=== PATIENT | male | born 1945 | race Caucasian/White ===

== ENCOUNTER → 2023-09-11 13:28 | Outpatient (REF) | payer OTHER, SELFPAY ==
[2023-09-11 16:33] LABS: Urine Albumin Negative (Neg - Trace); Urine Bilirubin Negative (Negative); Urine Character Clear (Clear); Urine Color Yellow; Urine Glucose Negative (Negative); Urine Ketone Negative (Negative); Urine Leukocyte Negative (Negative); Urine Nitrite Negative (Negative); Urine Occult Blood Negative (Negative); Urine Specific Gravity 1.025 (<1.030); Urine Urobilinogen Negative (Neg - 1+)
== END ==
LOC: HWLAB 13:28
PROVIDERS: ATTENDING PHYSICIAN Internal Medicine; REFERRING PHYSICIAN Urology
DX: R73.01 Impaired fasting glucose (principal); I48.21 Permanent atrial fibrillation; N28.89 Other specified disorders of kidney and ureter; J44.9 Chronic obstructive pulmonary disease, unspecified; E78.2 Mixed hyperlipidemia; E03.9 Hypothyroidism, unspecified
CPT/HCPCS: 81003

== ENCOUNTER → 2023-09-12 09:40 | Outpatient (REF) | payer OTHER, SELFPAY ==
[2023-09-12 11:42] LABS: % Basophils 0.8 % (0-2); % Eosinophils 2.4 % (0-6); % Immature Granulocytes 0.4 % (0-0.5); % Lymphocytes 10.9 % (20.5-51.1); % Neutrophils 75.5 % (42.2-75.2); Absolute Basophils 0.1 10^3/uL (0-0.2); Absolute Eosinophils 0.2 10^3/uL (0-0.7); Absolute Lymphocytes 0.8 10^3/uL (1.2-3.4); Absolute Monocytes 0.8 10^3/uL (0.1-0.6); Absolute Neutrophils 5.7 10^3/uL (1.4-6.5); Hematocrit 42.1 % (39.0-52.0); Hemoglobin 13.9 g/dL (13.0-18.0); Mean Corpuscular Hgb 30.8 pg (27.0-31.0); Mean Corpuscular Volume 93.1 fL (80.0-94.0); Nucleated Red Blood Cells % 0 % (-); Platelet Count 270 10^3/uL (130-400); Red Blood Cell Count 4.52 10^6/uL (4.70-6.10); White Blood Cell Count 7.5 10^3/uL (4.8-10.8)
[2023-09-12 11:46] LABS: ALT (SGPT) 17 U/L (0-50); AST (SGOT) 25 U/L (17-59); Albumin 4.2 g/dl (3.5-5.0); Alkaline Phosphatase 50 U/L (38-126); Blood Urea Nitrogen 24 mg/dl (9-20); Calcium 9.4 mg/dl (8.4-10.2); Carbon Dioxide 26 mmol/L (22-30); Chloride 103 mmol/L (98-107); Glucose 121 mg/dl (70-99); HDL Cholesterol 38 mg/dl; LDL Cholesterol, Calculated 70 mg/dl; Sodium 139 mmol/L (135-145); Total Bilirubin 0.9 mg/dl (0.2-1.3); Total Cholesterol 125 mg/dl (50-199); Total Protein 6.7 g/dl (6.3-8.2); Triglyceride 85 mg/dl (10-149); Very Low Density Lipoprotein 17 mg/dl (0-30); eGFR > 60.00
[2023-09-12 11:54] LABS: Potassium 3.9 mmol/L (3.5-5.1)
[2023-09-13 13:00] LABS: Free T4 1.26 ng/dl (0.78-2.19)
== END ==
LOC: HWLAB 09:40
PROVIDERS: ATTENDING PHYSICIAN Internal Medicine
DX: I48.21 Permanent atrial fibrillation (principal); E78.2 Mixed hyperlipidemia; J44.9 Chronic obstructive pulmonary disease, unspecified; R73.01 Impaired fasting glucose; E03.9 Hypothyroidism, unspecified
CPT/HCPCS: 36415; 80053; 80061; 83036; 84439; 84443; 85025

== ENCOUNTER → 2023-09-13 10:22 | Outpatient (REF) | payer OTHER, SELFPAY | LOC: HWRAD 10:22 | PROVIDERS: ATTENDING PHYSICIAN Urology; FAMILY PHYSICIAN Internal Medicine | DX: C64.9 Malignant neoplasm of unspecified kidney, except renal pelvis (principal) | CPT/HCPCS: 74170; Q9967 ==

== ENCOUNTER → 2023-09-28 | Outpatient (REF) | payer OTHER, SELFPAY | LOC: DHSLP | PROVIDERS: ATTENDING PHYSICIAN Internal Medicine | DX: G47.33 Obstructive sleep apnea (adult) (pediatric) (principal) | CPT/HCPCS: 95800 ==

== ENCOUNTER → 2024-09-11 11:47 | Outpatient (REF) | payer OTHER, SELFPAY ==
[2024-09-11 16:21] LABS: ALT (SGPT) 15 U/L (0-50); AST (SGOT) 23 U/L (17-59); Albumin 4.8 g/dl (3.5-5.0); Alkaline Phosphatase 54 U/L (38-126); Blood Urea Nitrogen 18 mg/dl (9-20); Calcium 9.9 mg/dl (8.4-10.2); Carbon Dioxide 27 mmol/L (22-30); Chloride 106 mmol/L (98-107); Glucose 127 mg/dl (70-99); HDL Cholesterol 36 mg/dl; LDL Cholesterol, Calculated 78 mg/dl; Potassium 4.1 mmol/L (3.5-5.1); Sodium 145 mmol/L (135-145); Total Bilirubin 1.4 mg/dl (0.2-1.3); Total Cholesterol 135 mg/dl (50-199); Total Protein 7.2 g/dl (6.3-8.2); Triglyceride 105 mg/dl (10-149); Very Low Density Lipoprotein 21 mg/dl (0-30); eGFR > 60.00
[2024-09-11 16:29] LABS: Microalbumin, Random Urine 5.9 mg/dl (0.6-1.7)
[2024-09-11 16:40] LABS: Hematocrit 47.1 % (39.0-52.0); Hemoglobin 15.3 g/dL (13.0-18.0); Mean Corp Hgb Conc. 32.5 g/dL (33.0-37.0); Mean Corpuscular Volume 95.3 fL (80.0-94.0); Mean Platelet Volume 10.9 fL (7.4-10.4); Platelet Count 286 10^3/uL (130-400); Red Blood Cell Count 4.94 10^6/uL (4.70-6.10); Red Cell Dist. Width 15.1 % (11.5-14.5); White Blood Cell Count 8.7 10^3/uL (4.8-10.8)
[2024-09-11 16:42] LABS: Microalbumin/creatinine Ratio 96.6 mg/g
[2024-09-11 16:44] LABS: TSH 2.93 uIU/ml (0.47-4.68)
[2024-09-11 17:27] LABS: % Basophils 0.7 % (0-2); % Eosinophils 2.7 % (0-6); % Immature Granulocytes 13.7 % (0-0.5); % Lymphocytes 9.7 % (20.5-51.1); % Monocytes 10.8 % (1.7-9.3); % Neutrophils 62.4 % (42.2-75.2); Absolute Basophils 0.1 10^3/uL (0-0.2); Absolute Eosinophils 0.2 10^3/uL (0-0.7); Absolute Immature Granulocytes 1.2 10^3/uL (0-0.05); Absolute Lymphocytes 0.9 10^3/uL (1.2-3.4); Absolute Monocytes 0.9 10^3/uL (0.1-0.6); Absolute Neutrophils 5.4 10^3/uL (1.4-6.5); Nucleated Red Blood Cells % 0 % (-)
[2024-09-12 08:15] LABS: Glycohemoglobin (HgbA1c) 5.9 % (4.0-5.6)
== END ==
LOC: HWLAB 11:47
PROVIDERS: FAMILY PHYSICIAN Internal Medicine
DX: E11.9 Type 2 diabetes mellitus without complications (principal); R73.01 Impaired fasting glucose; E03.9 Hypothyroidism, unspecified; I48.21 Permanent atrial fibrillation; E78.2 Mixed hyperlipidemia; J44.9 Chronic obstructive pulmonary disease, unspecified; I48.91 Unspecified atrial fibrillation; I35.1 Nonrheumatic aortic (valve) insufficiency; E78.00 Pure hypercholesterolemia, unspecified; I25.10 Atherosclerotic heart disease of native coronary artery without angina pectoris; I48.20 Chronic atrial fibrillation, unspecified
CPT/HCPCS: 36415; 80053; 80061; 82043; 82570; 83036; 84443; 85025

== ENCOUNTER → 2024-11-11 08:53 | Outpatient (REF) | payer OTHER, SELFPAY | LOC: HWRAD 08:53 | PROVIDERS: ATTENDING PHYSICIAN Internal Medicine | DX: G45.9 Transient cerebral ischemic attack, unspecified (principal) | CPT/HCPCS: 93880 ==

== ENCOUNTER 2024-11-14 11:04 | Emergency (ER) | payer OTHER, SELFPAY ==
[2024-11-14 11:04] VITALS: BMI 32.2
[2024-11-14 11:06] VITALS: BP 114/66
[2024-11-14 11:20] VITALS: BP 142/55
[2024-11-14 11:57] LABS: Hematocrit 47.9 % (39.0-52.0); Hemoglobin 15.8 g/dL (13.0-18.0); Mean Corpuscular Volume 94.1 fL (80.0-94.0); Mean Platelet Volume 10.8 fL (7.4-10.4); Platelet Count 293 10^3/uL (130-400); Red Blood Cell Count 5.09 10^6/uL (4.70-6.10); Red Cell Dist. Width 15.5 % (11.5-14.5); White Blood Cell Count 9.8 10^3/uL (4.8-10.8)
[2024-11-14 12:03] VITALS: BP 126/58
[2024-11-14 12:13] LABS: ALT (SGPT) 12 U/L (0-50); AST (SGOT) 22 U/L (17-59); Albumin 4.5 g/dl (3.5-5.0); Alkaline Phosphatase 44 U/L (38-126); Blood Urea Nitrogen 20 mg/dl (9-20); Calcium 9.8 mg/dl (8.4-10.2); Carbon Dioxide 32 mmol/L (22-30); Chloride 100 mmol/L (98-107); Estimated Creatinine Clearance 67 ml/min; Glucose 119 mg/dl (70-99); Potassium 4.1 mmol/L (3.5-5.1); Sodium 140 mmol/L (135-145); Total Bilirubin 1.2 mg/dl (0.2-1.3); Total Protein 7.1 g/dl (6.3-8.2); eGFR > 60.00
[2024-11-14 12:30] VITALS: BP 130/58
[2024-11-14 12:55] LABS: % Basophils 0.5 % (0-2); % Eosinophils 2.1 % (0-6); % Immature Granulocytes 0.5 % (0-0.5); % Lymphocytes 5.8 % (20.5-51.1); % Monocytes 10.7 % (1.7-9.3); % Neutrophils 80.4 % (42.2-75.2); Absolute Basophils 0.1 10^3/uL (0-0.2); Absolute Eosinophils 0.2 10^3/uL (0-0.7); Absolute Immature Granulocytes 0.1 10^3/uL (0-0.05); Absolute Lymphocytes 0.6 10^3/uL (1.2-3.4); Absolute Monocytes 1.1 10^3/uL (0.1-0.6); Absolute Neutrophils 7.8 10^3/uL (1.4-6.5); Nucleated Red Blood Cells % 0 % (-)
[2024-11-14 13:00] VITALS: BP 134/60
[2024-11-14 13:30] VITALS: BP 138/63
--- NOTE | 2024-11-14 13:59 | ED.GENMED ---
History of Present Illness
General
Chief Complaint: Dizziness
Time Seen by Provider: 11/14/24 11:12
History of Present Illness
History of Present Illness:
79-year-old male with history of permanent A-fib, CHF, CAD, hypertension, and hyperlipidemia presents to the emergency department for evaluation of dizziness as well as head pressure today. He notes that 3 weeks ago he had an episode of right
facial droop and slurred speech that lasted for several minutes before resolving. He followed up on this abnormality with his primary care physician who sent him for an outpatient carotid duplex study, this revealed less than 50% stenosis in both
carotids. He has an MRI scheduled for December to evaluate this further. He has been compliant with his Eliquis. Denies any chest pain or shortness of breath at this time. Also notes a persistent cough that does not seem to resolve as been
worsening over the past several weeks
Past History
Past History
ED Past Medical History: CAD and HTN
ED Past Surgical History: Cardiac and Other (Thymoma)
Social History
Tobacco: Non-smoker
Alcohol: None
Drug: None
Personal: Single
Living: with family
Employment: Employed
Family History
Family History: Negative Early CAD
Review of Systems
Review of Systems
Allergies reviewed?: Yes
All Other Systems: ROS reviewed and negative except as documented in HPI and ROS
Phy Exam
Physical Exam
Physical Exam:
GEN: Well appearing, NAD, WDWN
HEENT: Oral mucosa moist, no scleral icterus, no nasal congestion
Cardiac: Bradycardic and irregular
Lung: No respiratory distress, no tachypnea
MSK: No gross deformity or injuries
Skin: Good color, no pallor or jaundice, no rashes
Neuro: AO x3; CN II-XII grossly intact. BUE strength 5/5 in all lynn, sensation intact and symmetric. BLE strength 5/5 in all lynn, sensation intact and symmetric
Psych: Calm, cooperative
Course
Orders/Labs/Results
Orders:
Orders
11/14/24 11:23
Electrocardiogram (*1) Urgent
Reason for Study: TIA/Stroke
CT Head W/o Iv Contrast Urgent
Comment:
Reason For Exam: R facial droop/dysarthria now resolved
EKG- Treatment ONCE
11/14/24 11:31
Complete Blood Count/With Diff Urgent
Comprehensive Metabolic Panel Urgent
11/14/24 13:49
CR Chest - 2 Views Urgent
Comment:
Reason For Exam: cough
Abnormal Lab Results
11/14/24
11:31
MCV 94.1 H fL
(80.0-94.0)
RDW 15.5 H %
(11.5-14.5)
MPV 10.8 H fL
(7.4-10.4)
Abs Immat Gran (auto) 0.1 H 10^3/uL
(0-0.05)
Absolute Neuts (auto) 7.8 H 10^3/uL
(1.4-6.5)
Absolute Lymphs (auto) 0.6 L 10^3/uL
(1.2-3.4)
Absolute Monos (auto) 1.1 H 10^3/uL
(0.1-0.6)
Neutrophils % 80.4 H %
(42.2-75.2)
Lymphocytes % 5.8 L %
(20.5-51.1)
Monocytes % 10.7 H %
(1.7-9.3)
Carbon Dioxide 32 H mmol/L
(22-30)
Glucose 119 H mg/dl
(70-99)
11/14/24 11:31
11/14/24 11:31
Vital Signs
Initial and Last Documented VS:
Initial Vital Signs
Pulse Resp BP Pulse Ox
65 15 114/66 97
11/14/24 11:06 11/14/24 11:06 11/14/24 11:06 11/14/24 11:06
Last Documented Vital Signs
Pulse Resp BP Pulse Ox
60 16 138/63 95
11/14/24 13:30 11/14/24 14:00 11/14/24 13:30 11/14/24 14:00
MDM/Problems Addressed
MDM/Problems Addressed:
Because of the patient's dizziness and head pressure at this time is unclear. His CT shows no sign of subacute stroke, his recent facial symptoms are most likely a TIA however he is well outside the range to start antiplatelets nevertheless he is
on anticoagulants and this would not be recommended. In regards to his persistent coughing he was noted to have a right pleural effusion with question of associated pneumonia versus atelectasis, will cover with 5-day course of antibiotics although
his coughing sounds more postnasal drip in nature.
Comment
Comment:
EKG independently interpreted by me shows an atrial fibrillation at a rate of [address] changes concerning for ischemia
*Pulse Oximetry
SaO2: 95
Oxygen Mode of Delivery: Room air
Patient hypoxic: no
*Critical Care Note
Total Time (30-74mins, 75-104mins- exclusive of procedures): Not Applicable
ED Attending Note
-
Portions of this chart may have been created with voice recognition software.� Occasional wrong word or��sound alike� substitutions may have occurred due to the inherent limitations of voice recognition software.
Discharge Plan
Departure
Patient Disposition: Home (Routine Discharge)
Date of Disposition: 11/14/24
Time of Disposition: 15:08
Patient with high blood pressure during this ER visit?: No
Discharge Problem:
Pleural effusion on right, Brain TIA, intractable cough
Instructions: Pleural effusion - Discharge instructions
Prescriptions:
New
amoxicillin-pot clavulanate 875-125 mg tablet
1 tab PO BID 5 Days Qty: 10 0RF
ipratropium bromide 42 mcg (0.06 %) spray,non-aerosol
2 spray intranasal TID PRN (Reason: allergy symptoms) Qty: 15 0RF
No Action
omeprazole [Prilosec] 40 MG capsule,delayed release(DR/EC)
40 mg PO PRN PRN (Reason: as needed)
metoprolol tartrate 50 MG tablet
50 mg PO BID
levothyroxine 200 MCG tablet
200 mcg PO DAILY
finasteride 5 MG tablet
5 mg PO DAILY
fenofibrate nanocrystallized 48 MG tablet
48 mg PO DAILY
prednisone 50 MG tablet
50 mg PO DAILY Qty: 5 0RF
albuterol sulfate 1 PUFF HFA aerosol inhaler
1 puff inhalation R Q4HPRN PRN (Reason: cough,wheezing,short of breath) Qty: 1 0RF
Referrals:
Rasta Suresh MD [Active, Pulmonary Medicine] - Call in 1-3 days for appt
Adriel Boyce DO [Family Provider, Internal Medicine]
Activity Restrictions/Additional Instructions:
You have a small amount of fluid buildup in your right lung which may be causing your cough. It is also possible there may be a small pneumonia adjacent to this and as a result we will treat you with a short course of antibiotics
Follow-up with your primary doctor as well as the listed entrepreneurial finance professor to discuss next steps for your right sided fluid, at this time it does not appear large enough to be drained
Interventions
Interventions:
*Risk Screen - Suicide Last Done: 11/14/24 11:06
*General Assessment Last Done: 11/14/24 11:06
*Neglect/Abuse Screening Last Done: 11/14/24 11:06
*ED- Fall Risk Assessment Last Done: 11/14/24 11:40
*ED COVID-19 Vaccine History Last Done: 11/14/24 11:06
*Nursing Disposition Last Done: 11/14/24 15:18
ED- Neurological Assessment Last Done: 11/14/24 11:40
ED- Cardiac Assessment Last Done: 11/14/24 11:40
ED Swallowing Screen Last Done: 11/14/24 11:40
Discharge Date and Time
Discharge Date/Time: 11/14/24 15:18
Print Language: GRENADIAN
== END 2024-11-14 15:18 | disposition home or self-care (01) ==
LOC: EMR 11:04
PROVIDERS: Physician Assistant; EMERGENCY PHYSICIAN Emergency Medicine; FAMILY PHYSICIAN Internal Medicine
DX: G45.9 Transient cerebral ischemic attack, unspecified (principal); J90 Pleural effusion, not elsewhere classified; R05.9 Cough, unspecified; E78.5 Hyperlipidemia, unspecified; I11.0 Hypertensive heart disease with heart failure; I50.9 Heart failure, unspecified; I48.21 Permanent atrial fibrillation; I25.10 Atherosclerotic heart disease of native coronary artery without angina pectoris; Z79.01 Long term (current) use of anticoagulants; Z95.0 Presence of cardiac pacemaker
CPT/HCPCS: 99285; 70450; 71046; 80053; 85025; 93005

== ENCOUNTER → 2024-12-02 11:58 | Outpatient (REF) | payer OTHER, SELFPAY ==
[2024-12-02 15:41] LABS: Hematocrit 46.9 % (39.0-52.0); Hemoglobin 15.3 g/dL (13.0-18.0); Mean Corp Hgb Conc. 32.6 g/dL (33.0-37.0); Mean Corpuscular Volume 94.0 fL (80.0-94.0); Platelet Count 244 10^3/uL (130-400); Red Cell Dist. Width 15.6 % (11.5-14.5)
[2024-12-02 15:53] LABS: Blood Urea Nitrogen 23 mg/dl (9-20); Calcium 9.5 mg/dl (8.4-10.2); Carbon Dioxide 30 mmol/L (22-30); Chloride 101 mmol/L (98-107); Glucose 117 mg/dl (70-99); Potassium 4.0 mmol/L (3.5-5.1); Sodium 139 mmol/L (135-145); eGFR > 60.00
[2024-12-02 16:28] LABS: Nucleated Red Blood Cells % 0 % (-)
== END ==
LOC: HWLAB 11:58
PROVIDERS: ATTENDING PHYSICIAN Nurse Practitioner Adult Health
DX: R06.09 Other forms of dyspnea (principal); I50.32 Chronic diastolic (congestive) heart failure; I35.1 Nonrheumatic aortic (valve) insufficiency; J44.9 Chronic obstructive pulmonary disease, unspecified; R09.82 Postnasal drip
CPT/HCPCS: 36415; 71046; 80048; 83880; 85025

== ENCOUNTER → 2024-12-25 13:39 | Outpatient (REF) | payer OTHER, SELFPAY ==
[2024-12-25 16:28] LABS: Blood Urea Nitrogen 19 mg/dl (9-20); Calcium 9.7 mg/dl (8.4-10.2); Carbon Dioxide 32 mmol/L (22-30); Chloride 100 mmol/L (98-107); Glucose 115 mg/dl (70-99); Potassium 4.2 mmol/L (3.5-5.1); Sodium 140 mmol/L (135-145); eGFR > 60.00
== END ==
LOC: HWLAB 13:39
PROVIDERS: ATTENDING PHYSICIAN Nurse Practitioner Family; FAMILY PHYSICIAN Internal Medicine
DX: I50.32 Chronic diastolic (congestive) heart failure (principal); R06.02 Shortness of breath; J44.9 Chronic obstructive pulmonary disease, unspecified; I35.1 Nonrheumatic aortic (valve) insufficiency; I48.21 Permanent atrial fibrillation
CPT/HCPCS: 36415; 80048; 83880

== ENCOUNTER 2024-12-31 20:50 | Inpatient (IN) | payer OTHER, SELFPAY ==
[2024-12-31 14:57] VITALS: BP 159/70
[2024-12-31 15:33] LABS: C-Reactive Protein < 5.00 mg/L (0.0-10.00)
[2024-12-31 15:38] LABS: ALT (SGPT) 14 U/L (0-50); AST (SGOT) 24 U/L (17-59); Albumin 4.6 g/dl (3.5-5.0); Alkaline Phosphatase 56 U/L (38-126); Blood Urea Nitrogen 21 mg/dl (9-20); Calcium 9.7 mg/dl (8.4-10.2); Carbon Dioxide 32 mmol/L (22-30); Chloride 104 mmol/L (98-107); Glucose 109 mg/dl (70-99); Potassium 4.4 mmol/L (3.5-5.1); Sodium 142 mmol/L (135-145); Total Protein 6.9 g/dl (6.3-8.2); eGFR > 60.00
[2024-12-31 15:53] LABS: Hematocrit 49.2 % (39.0-52.0); Hemoglobin 15.9 g/dL (13.0-18.0); Mean Corp Hgb Conc. 32.3 g/dL (33.0-37.0); Mean Corpuscular Volume 93.9 fL (80.0-94.0); Nucleated Red Blood Cells % 0 % (-); Platelet Count 277 10^3/uL (130-400); Red Cell Dist. Width 15.9 % (11.5-14.5)
[2024-12-31 19:00] VITALS: BP 149/56
--- NOTE | 2024-12-31 19:43 | ED.GENMED ---
History of Present Illness
General
Chief Complaint: Eye Problems
Time Seen by Provider: 12/31/24 17:32
History of Present Illness
History of Present Illness:
79-year-old male with history of A-fib on Eliquis, CHF, CAD, hypertension and hyperlipidemia presents to the emergency department for evaluation of intermittent visual disturbances over the past several weeks. He went to his eye doctor today where
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 He did have a TIA approximately 6 weeks ago with facial droop that was evaluated with head CT and carotid
Doppler, Doppler at that time showed no significant carotid stenosis. He is compliant with his Eliquis. Denies any current visual symptoms
Past History
Past History
ED Past Medical History: CAD and HTN
ED Past Surgical History: Cardiac and Other (Thymoma)
Social History
Tobacco: Non-smoker
Alcohol: None
Drug: None
Personal: Single
Living: with family
Employment: Employed
Family History
Family History: Negative Early CAD
Review of Systems
Review of Systems
Allergies reviewed?: Yes
All Other Systems: ROS reviewed and negative except as documented in HPI and ROS
Phy Exam
Physical Exam
Physical Exam:
GEN: Well appearing, NAD, WDWN
HEENT: Oral mucosa moist, no scleral icterus, no nasal congestion
Cardiac: Regular rate
Lung: No respiratory distress, no tachypnea
MSK: No gross deformity or injuries
Skin: Good color, no pallor or jaundice, no rashes
Neuro: AO x3; CN II-XII grossly intact. BUE strength 5/5 in all lynn, sensation intact and symmetric. BLE strength 5/5 in all lynn, sensation intact and symmetric. Visual lynn intact by confrontation x 4 and symmetric
Psych: Calm, cooperative
Course
Orders/Labs/Results
Orders:
Orders
12/31/24 14:55
CT Head W/o Iv Contrast Urgent
Comment:
Reason For Exam: vision change
12/31/24 14:56
US Cerebrovascular Urgent
Comment:
Reason For Exam: vision changes
12/31/24 14:59
EKG [Electrocardiogram (*1)] Urgent
Reason for Study: Bradycardia / Tachycardia
EKG- Treatment ONCE
12/31/24 15:09
CRP [C-Reactive Protein] Urgent
Complete Blood Count/With Diff Urgent
Comprehensive Metabolic Panel Urgent
ESR [Erythrocyte Sed Rate] Urgent
12/31/24 17:44
CT Head & Neck Angio W/wo IV Urgent
Comment:
Reason For Exam: abnormal carotid doppler, L vision loss
Abnormal Lab Results
12/31/24
15:09
MCHC 32.3 L g/dL
(33.0-37.0)
RDW 15.9 H %
(11.5-14.5)
MPV 10.8 H fL
(7.4-10.4)
Abs Immat Gran (auto) 0.1 H 10^3/uL
(0-0.05)
Absolute Neuts (auto) 6.7 H 10^3/uL
(1.4-6.5)
Absolute Lymphs (auto) 0.7 L 10^3/uL
(1.2-3.4)
Absolute Monos (auto) 0.9 H 10^3/uL
(0.1-0.6)
Immature Gran % 0.8 H %
(0-0.5)
Neutrophils % 78.0 H %
(42.2-75.2)
Lymphocytes % 8.4 L %
(20.5-51.1)
Monocytes % 10.2 H %
(1.7-9.3)
Carbon Dioxide 32 H mmol/L
(22-30)
BUN 21 H mg/dl
(9-20)
Glucose 109 H mg/dl
(70-99)
Total Bilirubin 1.4 H mg/dl
(0.2-1.3)
12/31/24 15:09
12/31/24 15:09
Vital Signs
Initial and Last Documented VS:
Initial Vital Signs
Pulse Resp BP Pulse Ox
52 17 159/70 96
12/31/24 14:57 12/31/24 14:57 12/31/24 14:57 12/31/24 14:57
Last Documented Vital Signs
Pulse Resp BP Pulse Ox
52 17 159/70 96
12/31/24 14:57 12/31/24 14:57 12/31/24 14:57 12/31/24 19:45
MDM/Problems Addressed
MDM/Problems Addressed:
Although initial carotid Doppler did show progression of stenosis right worse than left, a follow-up CTA was obtained showing significant carotid stenosis bilaterally. Discussed case with vascular surgery, as he is symptomatic with vision loss
intermittently will admit on heparin with plan for inpatient CEA if deemed appropriate by vascular. Will be admitted to the hospitalist service on heparin
*Pulse Oximetry
SaO2: 96
Oxygen Mode of Delivery: Room air
Patient hypoxic: no
*Critical Care Note
Total Time (30-74mins, 75-104mins- exclusive of procedures): Not Applicable
ED Attending Note
-
Portions of this chart may have been created with voice recognition software.� Occasional wrong word or��sound alike� substitutions may have occurred due to the inherent limitations of voice recognition software.
Discharge Plan
Departure
Patient Disposition: Admit
Date of Disposition: 12/31/24
Time of Disposition: 19:45
Admit to: Telemetry
Presentation/result/management discussed w/ accepting MD/DO: Hospitalist
Discharge Problem:
Carotid artery stenosis, symptomatic
Prescriptions:
No Action
omeprazole [Prilosec] 40 MG capsule,delayed release(DR/EC)
40 mg PO PRN PRN (Reason: as needed)
metoprolol tartrate 50 MG tablet
50 mg PO BID
levothyroxine 200 MCG tablet
200 mcg PO DAILY
finasteride 5 MG tablet
5 mg PO DAILY
fenofibrate nanocrystallized 48 MG tablet
48 mg PO DAILY
prednisone 50 MG tablet
50 mg PO DAILY Qty: 5 0RF
albuterol sulfate 1 PUFF HFA aerosol inhaler
1 puff inhalation R Q4HPRN PRN (Reason: cough,wheezing,short of breath) Qty: 1 0RF
amoxicillin-pot clavulanate 875-125 mg tablet
1 tab PO BID 5 Days Qty: 10 0RF
ipratropium bromide 42 mcg (0.06 %) spray,non-aerosol
2 spray intranasal TID PRN (Reason: allergy symptoms) Qty: 15 0RF
Referrals:
Adriel Boyce DO [Family Provider, Internal Medicine]
Interventions
Interventions:
*Risk Screen - Suicide Last Done: 12/31/24 14:58
*General Assessment Last Done: 12/31/24 14:58
*Neglect/Abuse Screening Last Done: 12/31/24 14:58
*ED COVID-19 Vaccine History Last Done: 12/31/24 14:58
Discharge Date and Time
Print Language: CYMRAES
[2024-12-31 19:51] VITALS: BMI 30.1
[2024-12-31 20:01] VITALS: BP 147/83
--- NOTE | 2024-12-31 20:02 | HPS.HSE ---
Family Physician
-
Family Physician: Adriel Boyce
Chief Complaint
-
Vision disturbance
History of Present Illness
This is an 79-year-old male with past medical history significant for coronary for fibrillation on anticoagulation, CAD status post CABG, COPD, hypertension, hyperlipidemia presenting from my clinic for evaluation of carotid stenosis.
Patient reports intermittent high disturbances over the past several weeks. 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
Patient had a TIA approximately 6 weeks ago with facial droop and was evaluated with head CT and carotid Dopplers. Doppler at that time showed no significant carotid stenosis. He is compliant with his Eliquis. He is currently without any active
vision complaints.
In the emergency department today, blood pressure was 150/56 with a pulse of 57 and was satting 95% on room air. ECG shows atrial fibrillation at a rate of 56. CBC was unremarkable, electrolytes BUN and creatinine were normal.
Vascular U/S
RIGHT: Plaque is identified in the carotid bulb and internal carotid artery. Carotid velocity profile is consistent with 50-69% internal carotid artery stenosis. Vertebral artery flow is antegrade.
LEFT: Calcified plaque is identified in the carotid bulb. Acoustic shadowing from the plaque limits the velocity evaluation in that area. Carotid velocity measurements are consistent with less than 50% internal carotid artery stenosis. Vertebral
artery flow is antegrade.
CTA Head: No significant arterial stenosis. No aneurysm.
CTA Neck: Atherosclerotic calcifications of the bilateral carotid bifurcations with approximately 75% stenosis on the left and 65% stenosis on the right by NASA criteria.
Medical History
Past Medical History
Past Medical History: Reports Arrhythmia (atrial fibrillation), CAD, COPD and HTN
Additional Past Medical History:
Hypothyroid
Irritable disease
CAD
Hypertension
Chronic atrial fibrillation
CHF
Mitral regurgitation
COPD
Past Surgical History: Reports Other
Additional Past Surgical History:
Coverage
Thyroid resection
Prostate procedure
L3-4 ILESI
Bilateral cataract extraction
Social History
Alcohol: None
Drug: None
Employment: Not Employed
Family History
Family History: Not pertinent
Allergies / Home Medications
Allergies reflects when Allergies were last updated in [facility].
Home Medications with original date entered in [facility]
Allergy/Medication List:
Allergies
Allergy/AdvReac Type Severity Reaction Status Date / Time
oxycodone (From Percocet) Allergy Nausea / Verified 12/31/24 19:52
Vomiting
Home Medications
fenofibrate nanocrystallized 48 mg tablet 48 mg PO DAILY 09/20/11
finasteride 5 mg tablet 5 mg PO DAILY 09/20/11
levothyroxine 200 mcg tablet 200 mcg PO DAILY 09/20/11
metoprolol tartrate 50 mg tablet 50 mg PO BID 09/20/11
omeprazole 40 mg capsule,delayed release (Prilosec) 40 mg PO PRN PRN as needed 09/20/11
albuterol sulfate 90 mcg/actuation aerosol inhaler 1 puff inhalation R Q4HPRN PRN cough,wheezing,short of breath ##1 06/25/18
prednisone 50 mg tablet 50 mg PO DAILY #5 tabs 06/25/18
amoxicillin 875 mg-potassium clavulanate 125 mg tablet 1 tab PO BID 5 days #10 tabs 11/14/24
ipratropium bromide 42 mcg (0.06 %) nasal spray 2 spray intranasal TID PRN allergy symptoms #15 mL 11/14/24
Review of Systems
-
Constitutional: Reports No Symptoms
EENT: Reports No Symptoms
Respiratory: Reports No Symptoms
Cardiac: Reports No Symptoms
Abdomen/GI: Reports No Symptoms
: Reports No Symptoms
Musculoskeletal: Reports No Symptoms
Skin: Reports No Symptoms
Neurological: Reports No Symptoms
Endocrine: Reports No Symptoms
Hematologic/Lymphatic: Reports No Symptoms
Psych: Reports No Symptoms
Physical Exam
Vital Signs
Vital Signs
Pulse Resp BP Pulse Ox
61 18 147/83 96
12/31/24 20:01 12/31/24 20:01 12/31/24 20:01 12/31/24 20:01
Physical Exam
General: Well Developed, Well Nourished and No Apparent Distress
HEENT: NormoCephalic, Moist mucous membranes, Atraumatic, PERRLA (Asymmetric dilation of the pupils, left greater than right, reactive to light bilaterally) and No Ptosis
Respiratory: Clear
Cardiac: S1/S2, Irregular Rhythm and Bradycardia; No Murmur or Rub
GI: Soft, Non Tender, Non Distended and Normal Bowel Sounds; No Organomegaly
Rectal: Deferred by Provider
Musculoskeletal: No Clubbing, No Cyanosis, Edema, Left Lower Extremity, Edema, Right Lower Extremity and No Edema
Skin: No Rash
Neuro: Nonfocal/grossly intact
Laboratory Results
-
12/31/24 15:09
12/31/24 15:09
Laboratory Results
Total Bilirubin 1.4 mg/dl (0.2-1.3) H 12/31/24 15:09
AST 24 U/L (17-59) 12/31/24 15:09
ALT 14 U/L (0-50) 12/31/24 15:09
Alkaline Phosphatase 56 U/L (38-126) 12/31/24 15:09
Data Reviewed
-
CT Scan: Report Reviewed by me
Medical Tests (Nuc Med, Echo, EKG etc): Image Personally Visualized and interpreted
Lab Data: Labs Reviewed by me
Old Records: Reviewed
Impression/Plan
-
IMPRESSION:
79-year-old with history of atrial fibrillation on anticoagulation, CAD, prior TIA presenting to the emergency department after being evaluated for recurrent vision disturbances and found to have Hollenhorst plaques on retinal exam. Sent for
evaluation for carotid stenosis. Patient does have bilateral carotid disease with calcifications of the bilateral carotid bifurcations with approximately 75% stenosis on the left and 65% stenosis on the right by NASA criteria.
PLAN:
Symptomatic carotid stenosis
- Admit to telemetry
-N.p.o. after midnight
-Started on anticoagulation with heparin
-Vascular consulted, plan for inpatient CEA
-Check lipid panel and A1c
Atrial fibrillation
-Controlled
-Continue metoprolol for now with hold parameters
-Hold Eliquis, heparin anticoagulation pending vascular
CHF
- mild edema, continue furosemide 40 daily
CPAP - Currently with PND, not using the CPAP last 1 month
- O2 by DC HS
DVT PPX- on heparin gtt
Code status - full code
[2024-12-31 20:27] LABS: APTT 34.7 Sec (23.4-35.0)
[2024-12-31] MEDS: HEPARIN 25000 UNITS/250 ML IV (20:28)
[2024-12-31 21:49] VITALS: BP 136/65; BMI 29.0
--- NOTE | 2024-12-31 22:10 | PTCARENOTE ---
Pt transported to via stretcher. Pt independent from stretcher to bed. Pt AAOX3, placed on TELE and vitals stable. Pt arrived on a heparin drip, oriented to room and call brown within reach.
[2024-12-31 23:21] VITALS: BP 134/74
[2025-01-01 03:00] VITALS: BP 141/66
[2025-01-01 03:48] LABS: APTT 85.6 Sec (23.4-35.0)
[2025-01-01] MEDS: SYNTHROID 200 MCG PO (05:51)
[2025-01-01 06:00] VITALS: BMI 29.1
[2025-01-01 07:00] VITALS: BP 153/73
--- NOTE | 2025-01-01 08:10 | CON.NEURO4 ---
Addendum entered and electronically signed by Alhaji Lane MD 01/01/25 09:53:
Studies reviewed.
I have personally examined the patient. I reviewed and agree with the PHARMACEUTICAL WORKER's Note.
My addenda:
Awake, alert, interactive. No acute distress.
Speech intact.
Follows 2-step requests w/o difficulty. No tremor.
Extra-ocular movements grossly intact.
Facial movements full and symmetric. Hearing intact to normal conversational volume.
Normal UE movements bilaterally.
Neck: full ROM.
Chest: no dyspnea
Heart: no JVD
Ext: (-) Clubbing, (-) Cyanosis, (-) Edema
IMPRESSIONS/RECOMMENDATIONS:
Abrupt onset of left eye visual loss with prior history of dizziness and distant history of sudden right ear hearing loss (2015)
Most likely due to embolic phenomena
agree with likely need for CEA/CAStenting
check MRI of brain
check MRA head and neck
replace Pravastatin with Rosuvastatin 20 mg daily due to LDL > 70 previously
D/W patient
All questions answered.
Will continue to follow patient.
Original Note:
Documented by User: Kimmie Osborne NP 01/01/25 09:33
Consultation - Neurology 4
-
CONSULTING PHYSICIAN: Alhaji Lane MD
REFERRING PHYSICIAN: Hospitalists/Dr. Lopez
DICTATED BY: JELENA Richter
DATE/TIME OF REQUEST: 01/01/25
DATE/TIME OF CONSULTATION: 01/01/25
Reason for Consultation: Vision changes
History of Present Illness:
This is an 79-year-old right-handed male who has presented to the hospital with report of vision changes. In early October 2024, patient notes having transient right facial drooping and slurred speech lasting a few minutes before completely resolving.
He had an outpatient carotid ultrasound on 11/11/24 following this event, and it demonstrated <50% stenosis bilaterally. He is scheduled for an outpatient MRI brain this month for additional follow-up. Then on 11/14/24, he presented to the ER with
report of dizziness and head pressure. CT head was obtained and was negative for any acute abnormalities. He is taking apixaban and denies missing any doses. Chest xray demonstrated a right pleural effusion and he was started on a 5 day course of
antibiotics and discharged home.
Three days ago on 12/29/24 he reports that around dinnertime he suddenly noticed a 'shield' coming down over his right upper quadrant vision in his left eye. This persisted, so he saw his eye doctor yesterday who noted a Hollenhorst plaque and sent
him to the ER for evaluation. Carotid ultrasound was obtained again and is now suggestive of a right ICA 50-69% stenosis. CTA head/neck was obtained and is suggestive of L ICA 75% and R ICA 65% stenosis. Patient reports that this morning (01/01/25)
when he woke up at 0700, the 'shield' was gone and has not returned. He denies any headache, dizziness, speech/swallow difficulty, numbness, and weakness. He also notes several months of postnasal drip that is causing him to cough during the night.
He is sleeping poorly and also notes a loss of appetite since this started. He saw ENT and reports they did not find any abnormalities, he is using two nasal sprays. He also notes sudden onset right ear hearing loss in 2016, he never regained
hearing. He has not missed any doses of his apixaban.
Past Medical History: Afib (Eliquis), HTN, HLD, CAD, CHF, hypothyroidism, NIDDM, STUART (cpap), osteoarthritis, psoriasis, bursitis, trigger finger IBS, vasomotor rhinitis
Surgical History: Appendectomy, CABG, thymoma, b/l cataract removal, L3-L4 ILESI, prostate
Family History: Reviewed and noncontributory.
Social History: Former smoker. Denies alcohol and illicit drug use.
Allergies: Oxycodone.
Home Medications: See below.
Review of Symptoms:
Patient denies any fever, headache, chest pain, shortness of breath, GI or symptoms.
�Per the HPI.�All systems are reviewed negative except above.
Physical Exam:
The patient is afebrile, abdomen is nondistended, breathing is unlabored, skin is warm and dry, no edema.
NIH Stroke Scale:
I performed the NIH stroke scale on the patient on 01/01/25 at 0830. The patient scored 0 points on the NIH stroke scale assessment, which were assigned as follows: See below.
Neurologic Examination:
The patient is awake, alert and oriented x 3. He is able to follow commands and answer questions appropriately. There is no aphasia or dysarthria. On cranial nerve assessment, pupils are 3 mm bilateral, round and reactive to light and
accommodation. Visual arteaga are full to finger wave. Extraocular movements are intact. Facial sensations are intact and bilaterally symmetrical, there is no facial asymmetry. Hearing is chronically absent in the right ear. Tongue palate and uvula
are midline. Sternocleidomastoid strengths are full bilaterally. Motor strengths are 5/5 bilateral upper and lower extremities on medical research [place] scale. There is no drift or involuntary movement noted. Deep tendon reflexes are 2+ bilateral
upper and lower extremities and Babinski is absent bilaterally. There was no extinction noted on double simultaneous stimulation. Coordination is intact by finger to nose bilaterally.
Lab Results: See below.
Neuro Imaging:
1. CT Head 12/31/24: No acute intracranial abnormalities. Findings an seen compatible with diffuse cortical atrophy with nonspecific white matter changes as described above.
2. Carotid ultrasound 12/31/24: RIGHT: Plaque is identified in the carotid bulb and internal carotid artery. Carotid velocity profile is consistent with 50-69% internal carotid artery stenosis. Vertebral artery flow is antegrade. LEFT: Calcified
plaque is identified in the carotid bulb. Acoustic shadowing from the plaque limits the velocity evaluation in that area. Carotid velocity measurements are consistent with less than 50% internal carotid artery stenosis. Vertebral artery flow is
antegrade.
3. CTA head/neck 12/31/24: Atherosclerotic calcifications of the bilateral carotid bifurcations with approximately 75% stenosis on the left and 65% stenosis on the right by NASA criteria. Partially visualized moderate right pleural effusion with
adjacent atelectasis.
Differentials for the patient's presentation include:
1. Transient left eye vision changes; etiology concerning for possible symptomatic L ICA stenosis.
2. Hollenhorst plaque.
3. Multiple episodes of transient stroke symptoms.
Patient has the following risk factors for their symptoms: HTN, Afib, former smoker, HLD, age
IV Tenecteplase/IAT candidacy: Not a candidate due to resolution of symptoms, NIHSS 0.
Recommendations:
-MRI brain noncontrast, MRA head/neck pending.
-Continue heparin gtt, resume home apixaban when able.
-Goal normotension.
-Vascular Surgery evaluation.
-LDL goal <70. LDL is 78. Was taking pravastatin 20mg daily, reports muscle cramps with this medication. Change to rosuvastatin 20mg daily.
-Goal normoglycemia, hbA1c is pending.
-NIHSS and neurological checks per unit guidelines.
-Provide patient with a stroke education packet.
-Cpap nightly.
Discussed patient care with: Dr. Lane, the patient
Vital Signs and Labs
-
Vital Signs and Labs:
Vital Signs
Temp Pulse Resp BP Pulse Ox
97.9 F 55 19 141/66 96
01/01/25 03:00 01/01/25 03:00 01/01/25 03:00 01/01/25 03:00 01/01/25 03:00
APTT 85.6 Sec (23.4-35.0) H 01/01/25 03:23
Sodium 142 mmol/L (135-145) 12/31/24 15:09
Potassium 4.4 mmol/L (3.5-5.1) 12/31/24 15:09
BUN 21 mg/dl (9-20) H 12/31/24 15:09
Glucose 109 mg/dl (70-99) H 12/31/24 15:09
Calcium 9.7 mg/dl (8.4-10.2) 12/31/24 15:09
Medications
-
Active Medications
Generic Name Dose Route Start Last Admin
Trade Name Freq PRN Reason Stop Dose Admin
Acetaminophen 650 mg 12/31/24 21:25
Acetaminophen 325 Mg Tablet PO 01/28/25 21:24
Q4HPRN PRN
mild pain/CALVILLO/temp> 100.4F
Albuterol 1 puff 12/31/24 21:25
Albuterol Hfa [90 Mcg/Dose] Inhaler INH
R Q4HPRN PRN
cough,wheezing,short of breath
Protocol
Atorvastatin Calcium 40 mg 01/01/25 18:00
Atorvastatin (Lipitor) 40 Mg Tablet PO 01/29/25 17:59
QPM JONA
Bisacodyl 10 mg 12/31/24 21:25
Bisacodyl 10 Mg Rectal Suppository RECTAL 01/28/25 21:24
[id number] PRN
constipation
Famotidine 20 mg 01/01/25 08:00
Famotidine 20 Mg Tablet PO 01/29/25 07:59
DAILY JONA
Fenofibrate 48 mg 01/01/25 08:00
Fenofibrate 48 Mg Tablet PO 01/29/25 07:59
DAILY JONA
Finasteride 5 mg 01/01/25 08:00
Finasteride 5 Mg Tablet PO 01/29/25 07:59
DAILY JONA
Furosemide 40 mg 01/01/25 08:00
Furosemide 40 Mg Tablet PO 01/29/25 07:59
DAILY JONA
Heparin Sodium 25,000 units in 250 mls @ 0 mls/hr 12/31/24 20:00 12/31/24 20:28
Heparin 46752 Units/250 Ml IV 250 mls
PER PROTOCOL JONA Administration
Protocol
Per Protocol
Levothyroxine Sodium 200 mcg 01/01/25 06:00 01/01/25 05:51
Levothyroxine 200 Mcg Tablet PO 01/29/25 05:59 200 mcg
DAILY @ 0600 JONA Administration
Lorazepam 1 mg 12/31/24 21:25
Lorazepam 1 Mg Tablet PO 01/28/25 21:24
DAILYPRN PRN
anxiety
Metoprolol Tartrate 25 mg 01/01/25 08:00
Metoprolol 25 Mg Regular Release Tablet PO 01/29/25 07:59
BID JONA
Ondansetron HCl 4 mg 12/31/24 21:25
Ondansetron 4 Mg/2 Ml Vial IV 01/28/25 21:24
Q6HPRN PRN
nausea and vomiting
Pantoprazole Sodium 40 mg 01/01/25 08:00
Pantoprazole 40 Mg Delayed Release Tablet PO 01/29/25 07:59
DAILYPRN PRN
GERD
Polyethylene Glycol 17 grams 12/31/24 21:25
Polyethylene Glycol Powder 17 Grams Packet PO 01/28/25 21:24
DAILYPRN PRN
constipation
Senna/Docusate Sodium 1 tablet 12/31/24 21:25
Docusate W/Senna (Anjelica-Colace) Tablet PO 01/28/25 21:24
BIDPRN PRN
constipation
Sodium Chloride 0 flush 12/31/24 22:00
Sodium Chloride 0.9% (Flush) Syringe IV 01/28/25 21:59
PER PROTOCOL JONA
Timolol Maleate 0 drop 01/01/25 08:00
Timolol 0.25% (Ophthalmic Solution) Bottle OPHTH 01/29/25 07:59
BID JONA
Home Medications
�Medication �Instructions �Recorded
fenofibrate nanocrystallized 48 mg 48 mg PO DAILY 09/20/11
tablet
finasteride 5 mg tablet 5 mg PO DAILY 09/20/11
levothyroxine 200 mcg tablet 200 mcg PO DAILY 09/20/11
metoprolol tartrate 50 mg tablet 50 mg PO BID 09/20/11
omeprazole 40 mg capsule,delayed 40 mg PO DAILY 09/20/11
release (Prilosec)
albuterol sulfate 90 mcg/actuation 1 puff inhalation R Q4HPRN PRN 06/25/18
aerosol inhaler cough,wheezing,short of breath ##1
apixaban 5 mg tablet (Eliquis) 5 mg PO BID 12/31/24
fluticasone propionate 50 2 spray intranasal BID 12/31/24
mcg/actuation nasal
spray,suspension
NIH Stroke Score
Subsequent NIH Scale
Date of Subsequent NIH Scale: 01/01/25
Time of Subsequent NIH Scale: 08:30
NIH Stroke Score
Level of Consciousness: 0 - Alert
LOC Questions: 0-Answers both correctly
LOC Commands: 0-Performs both correctly
Best Horizontal Gaze: 0-Normal
Visual [place]: 0=Normal, no visual loss
Facial Palsy: 0=Normal, symmetrical
Motor - Right Arm: 0=No drift 10 seconds
Motor - Left Arm: 0=No drift 10 seconds
Motor - Right Le-No drift 5 seconds
Motor - Left Le-No drift 5 seconds
Limb Ataxia: 0-Absent
Sensation: 0-Normal
Best Language: 0-No aphasia
Dysarthria: 0-Normal
Extinction and Inattention: 0-No abnormality
NIH Total Score:: 0
Modified [place] (mRS) Score
Modified [place] Scale (mRS): No symptoms
Score: 0
Alteplase Contraindication
Inclusion and Exclusion criteria reviewed: Yes

Documented by User: Alhaji Lane MD 01/01/25 09:41
NIH Stroke Score
NIH Stroke Score
NIH Total Score:: 0
Modified [place] (mRS) Score
Score: 0
[2025-01-01] MEDS: LASIX 40 MG PO (09:06)
[2025-01-01] MEDS: TRICOR 48 MG PO (09:07)
[2025-01-01] MEDS: PEPCID 20 MG PO (09:07)
[2025-01-01] MEDS: LOPRESSOR 25 MG PO (09:07)
[2025-01-01] MEDS: PROSCAR 5 MG PO (09:07)
[2025-01-01] MEDS: TIMOPTIC 0.25% OPHTHALMIC SOLUTION 1 DROP OPHTH ×2 (09:07→21:05)
--- NOTE | 2025-01-01 09:47 | W.PN.HOSP.TC ---
Today's Communication/Plan
-
Chest x-ray
BNP
Cardiology consult
Assessment / Plan
Assessment / Plan
Gen-AAOx3, NAD
HEENT-NC, AT, anicteric, clear oral mm
Neck-supple
CV-reg, no M, +S1/S2
Lungs-clear B/L
Abd-soft, NT, ND
Ext-bilateral ankle edema
Musculoskeletal-no cyanosis, clubbing
Skin-warm and dry
Neuro-grossly non-focal
Psych-calm, cooperative
Symptomatic left carotid stenosis -2 episodes of transient left monocular vision loss primarily involving the right upper quadrant of the left eye. Symptoms resolved. Noted to have Hollenhorst plaques on retinal exam by contact printer dry film, referred
to the emergency room for admission.
CTA of head and neck noted, 75% stenosis of the left ICA. 65% right sided.
MRA of head and neck pending. Neurology consulted.
Vascular surgery plans on left carotid endarterectomy tomorrow if stable.
Will get cardiology consult for preop assessment. Patient appears to be volume overloaded and may have a component of mild heart failure exacerbation.
Check two-view chest x-ray, BNP. Patient states that his furosemide dose was recently increased prior to admission, up to 40 mg in the morning, 20 mg in the afternoon. He claims his weight is down compared to a month ago.
CAD -with four-vessel CABG 1995. Denies exertional chest pain or pressure. Does have occasional exertional shortness of breath.
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 Gutiérrez.
Nuclear stress test done in [facility] March 2021 was negative for ischemia.
Atrial fibrillation -unknown type. On chronic Eliquis, last dose was 8/5 AM. Currently on IV heparin.
Essential hypertension -stable.
COPD without exacerbation
Hyperlipidemia
STUART -noncompliant with home CPAP.
Hypothyroidism -levothyroxine.
IBS
Obesity due to excess calories
Full code
Anticipated Discharge: > 48 hours
Subjective/Interval History
-
Date of Service: January 01, 2025
Patient seen and examined. No complaints.
Objective Data
-
Labs:
Laboratory Results
01/01/25 01/01/25 01/01/25
03:23 06:00 09:23
WBC Pending
Hgb Pending
Hct Pending
Plt Count Pending
APTT 85.6 H Pending
Sodium Pending
Potassium Pending
Chloride Pending
Carbon Dioxide Pending
BUN Pending
Creatinine Pending
Glucose Pending
Calcium Pending
Vital Signs:
Vital Signs
Temp Pulse Resp BP Pulse Ox
97.7 F 70 18 120/68 94
01/01/25 07:00 01/01/25 09:07 01/01/25 07:00 01/01/25 09:07 01/01/25 07:00
Review of Systems
-
History Source: Patient
All other systems: Reviewed and negative
--- NOTE | 2025-01-01 09:55 | PTCARENOTE ---
ptt therapeutic, no change to heparin gtt. recheck 1500
[2025-01-01 10:35] LABS: Hematocrit 45.9 % (39.0-52.0); Hemoglobin 15.1 g/dL (13.0-18.0); Mean Corp Hgb Conc. 32.9 g/dL (33.0-37.0); Mean Corpuscular Volume 93.1 fL (80.0-94.0); Platelet Count 224 10^3/uL (130-400); Red Cell Dist. Width 16.0 % (11.5-14.5)
[2025-01-01 10:48] LABS: APTT 97.3 Sec (23.4-35.0)
--- NOTE | 2025-01-01 10:57 | CM ---
Patient seen at bedside
IA completed
DX: symptomatic carotid stenosis
PMH: A fibrillation on anticoagulation, CAD status post CABG, COPD, hypertension, hyperlipidemia
Patient states has 2 homes. One in [place] (1 story, 2 M[place]), but primary residence is in [place], [place] which is 2 story, 3 [address], bedroom/bathroom on 2nd floor 12 steps.
PLOF: Independent, no device
DME: CPAP
Denies VN/Rehab
Denies insecurities
PCP: Adriel Boyce
Pharmacy: [address], [place]
PLAN: TBD, follow hospital progression, CM to continue to follow for needs/discharge planning
[2025-01-01 11:00] VITALS: BP 136/67
[2025-01-01 11:07] LABS: Blood Urea Nitrogen 18 mg/dl (9-20); Calcium 9.4 mg/dl (8.4-10.2); Carbon Dioxide 26 mmol/L (22-30); Chloride 106 mmol/L (98-107); Estimated Creatinine Clearance 72 ml/min; Glucose 107 mg/dl (70-99); HDL Cholesterol 35 mg/dl; LDL Cholesterol, Calculated 80 mg/dl; Magnesium 2.1 mg/dl (1.6-2.3); Potassium 4.0 mmol/L (3.5-5.1); Sodium 143 mmol/L (135-145); Very Low Density Lipoprotein 16 mg/dl (0-30); eGFR > 60.00
--- NOTE | 2025-01-01 11:23 | CON.CAR ---
Addendum entered and electronically signed by Matteo Buckley DO 01/01/25 16:49:
I saw and examined the patient.
The [employer] Director's note was reviewed and I agree with the note.
Comment:
Plan:
HPI: Patient came to the ER yesterday with symptoms of amaurosis fugax and was admitted with symptomatic left carotid stenosis and cardiology is now consulted for preoperative cardiovascular risk stratification. By review of [facility] records the patient
called his PCP on 10/07/2024 to report a right-sided facial droop and was recommended go to the ER, but patient reports his symptoms improved and he did not seek ER care. Patient then saw his PCP on 10/30/2024 and was sent for MRI of the brain and
carotid U/S. Carotid U/S as noted above showed a less than 50% LICA stenosis and 50 to 69% on the right. Patient was then seen in the ER on 11/14/2024 with dizziness and he was concerned that he had increasing symptoms related to his previous TIA,
this prompted CT scan in the ER that did not show any evidence of a subacute stroke and patient was given a 5-day course of antibiotics for a right sided pleural effusion and cough. The patient then noticed amaurosis fugax symptoms 3 days ago and
saw his hadoop developer yesterday and was found to have Hollenhorst plaques prompting referral to the ER. CTA of the neck indicated 75% L ICA lesion and 65% R ICA lesion prompting admission for symptomatic left carotid stenosis. Vascular surgery
scheduled to see the patient and make recommendations regarding revascularization. Cardiology consulted to see the patient for preoperative evaluation. Patient reports sleeping in a chair since September due to symptoms of orthopnea and chronic cough.
He had an ENT evaluation that was unremarkable and no improvement following antibiotic course given in the ER on 11/14/2024. CXR again shows a left-sided pleural effusion and his proBNP is 2730. Patient also reports increased LE edema and had
weeping wounds up until a week ago when his relief cook had him increase Lasix for 3 days, this helped the LE edema and also seemed to help his cough. Patient with known CAD s/p in 1996. No evidence of subsequent cath or PCI. Patient thinks his
last stress test was years ago. Patient also has known permanent A-fib and was taking Lopressor 50 mg BID prior to admission plus Eliquis 5 mg BID.
He remains in permanent atrial fibrillation.
He appears to be in acute on chronic heart failure and has had symptoms for 3 months.
He did have some interval improvement with recent increase in Lasix.
Will continue IV Lasix.
Check echocardiogram. His last EF from outside was preserved in May 2023.
Reduce beta vin with bradycardia
Consider ACEvs ARB during admit pending echo.
He has not had recent ischemic eval however he may require more urgent carotid intervention.
Will reassess after echocardiogram, however may need to consider Lexiscan MIBI nuclear stress testing.
He has an MRI scheduled for tomorrow.
Outpatient dose of Eliquis is on hold in anticipation of surgery and he is being bridged with heparin gtt.
Discussed with vascular
Patient's primary relief cook, Dr. Grigsby, retired and he is now following with 2 different cardiologists because he lives half of his year locally in [place] and the other half at the [facility]. Locally he will follow with Dr. Pace
and at the [facility] he will follow with Dr. Marianne Gutiérrez at [place] [facility] [place].
Original Note:
Consultation
Consultation Request
Date/Time Consultation Requested: 01/01/2025
Date/Time Consultation Performed: 01/01/2025
Requesting Provider: Dr. Lopez
Performing Provider: Dr. Buckley
Reason for Consultation: Preoperative cardiovascular risk stratification, acute HF
Medical History
-
History of Present Illness:
Patient came to the ER yesterday with symptoms of amaurosis fugax and was admitted with symptomatic left carotid stenosis and cardiology is now consulted for preoperative cardiovascular risk stratification. By review of [facility] records the patient
called his PCP on 10/07/2024 to report a right-sided facial droop and was recommended go to the ER, but patient reports his symptoms improved and he did not seek ER care. Patient then saw his PCP on 10/30/2024 and was sent for MRI of the brain and
carotid U/S. Carotid U/S as noted above showed a less than 50% LICA stenosis and 50 to 69% on the right. Patient was then seen in the ER on 11/14/2024 with dizziness and he was concerned that he had increasing symptoms related to his previous TIA,
this prompted CT scan in the ER that did not show any evidence of a subacute stroke and patient was given a 5-day course of antibiotics for a right sided pleural effusion and cough. The patient then noticed amaurosis fugax symptoms 3 days ago and
saw his hadoop developer yesterday and was found to have Hollenhorst plaques prompting referral to the ER. CTA of the neck indicated 75% L ICA lesion and 65% R ICA lesion prompting admission for symptomatic left carotid stenosis. Vascular surgery
scheduled to see the patient and make recommendations regarding revascularization. Cardiology consulted to see the patient for preoperative evaluation. Patient reports sleeping in a chair since September due to symptoms of orthopnea and chronic cough.
He had an ENT evaluation that was unremarkable and no improvement following antibiotic course given in the ER on 11/14/2024. CXR again shows a left-sided pleural effusion and his proBNP is 2730. Patient also reports increased LE edema and had
weeping wounds up until a week ago when his relief cook had him increase Lasix for 3 days, this helped the LE edema and also seemed to help his cough. Patient with known CAD s/p in 1996. No evidence of subsequent cath or PCI. Patient thinks his
last stress test was years ago. Patient also has known permanent A-fib and was taking Lopressor 50 mg BID prior to admission plus Eliquis 5 mg BID.
PMH:
Carotid disease, 75% L ICA and 65% R ICA disease by CTA neck 12/31/2024
Less than 50% LICA and 50 to 69% R ICA stenoses by carotid U/S 12/31/24
TIA symptoms with right-sided facial droop 10/07/24
EF 60% by echo 05/2023
Permanent A-fib
Bradycardia
Chronic Eliquis OAC
CAD s/p CABG 1996
HTN
Hyperlipidemia
STUART
Past Medical History
Past Medical History: Other (in HPI)
Past Surgical History: Appendectomy, Cardiac (CABG 1996), Urological (TURP) and Other (thymectomy)
Social History
Tobacco: Former Smoker (quit in 1996)
Alcohol: None
Drug: None
Personal:
Living: With Family
Family History
Family History: Cancer and Other (Afib)
Allergies / Home Medications
Allergy/AdvReac Type Severity Reaction Status Date / Time
oxycodone (From Percocet) Allergy Nausea / Verified 12/31/24 19:52
Vomiting
�Medication �Instructions �Recorded �Confirmed �Type
fenofibrate nanocrystallized 48 mg 48 mg PO DAILY High Cholesterol 09/20/11 12/31/24 History
tablet
finasteride 5 mg tablet 5 mg PO DAILY Urinary Issue 09/20/11 12/31/24 History
levothyroxine 200 mcg tablet 200 mcg PO DAILY Thyroid 09/20/11 12/31/24 History
metoprolol tartrate 50 mg tablet 50 mg PO BID Blood Pressure 09/20/11 12/31/24 History
omeprazole 40 mg capsule,delayed 40 mg PO DAILY Gastrointestinal 09/20/11 12/31/24 History
release (Prilosec) Issue
albuterol sulfate 90 mcg/actuation 1 puff inhalation R Q4HPRN PRN 06/25/18 12/31/24 Rx
aerosol inhaler cough,wheezing,short of breath ##1
apixaban 5 mg tablet (Eliquis) 5 mg PO BID Blood Clot 12/31/24 12/31/24 History
Prevention/Tx
fluticasone propionate 50 2 spray intranasal BID Allergies 12/31/24 12/31/24 History
mcg/actuation nasal
spray,suspension
Review of Systems
-
History Source: Patient
All other systems: Negative unless noted
Physical Exam
Vital Signs
Temp Pulse Resp BP Pulse Ox
97.7 F 70 18 120/68 94
01/01/25 07:00 01/01/25 09:07 01/01/25 07:00 01/01/25 09:07 01/01/25 07:00
GEN: NAD. AAOx3
HEENT: EOMI, MMM
LUNGS: RA. CTA B/L, no wheeze
CV: Afib on tele, slow VR. Irreg irreg, S1/S2, 2/6 syst LSB
ABD: soft, BS+, NT, ND
EXT: +2 pitting B/L LE edema
NEURO: Gross non-focal
SKIN: No rash
Lab Results
01/01/25 10:25
01/01/25 10:25
Soa-E-Bptmdobbdvk Pept 2730 pg/ml 01/01/25 10:25
Impression / Plan
-
PCP: Dr. Boyce
Cardiology: Dr. Marianne Gutiérrez at [facility] and Dr. Pace locally
Impression:
Admitted with amaurosis fugax and symptomatic left carotid lesion 12/31/2024
Carotid disease, 75% L ICA and 65% R ICA disease by CTA neck 12/31/2024
Less than 50% LICA and 50 to 69% R ICA stenoses by carotid U/S 12/31/24
TIA symptoms with right-sided facial droop 10/07/24
Acute HFpEF
EF 60% by echo 05/2023
Permanent A-fib
Bradycardia
Chronic Eliquis OAC
CAD s/p CABG 1996
HTN
Hyperlipidemia
STUART
Echo 06/15/2023: Pending study, EF 60%, mild to moderate MR, aortic sclerosis without stenosis, mild aortic regurgitation
Plan:
-Patient came to the ER yesterday with symptoms of amaurosis fugax and was admitted with symptomatic left carotid stenosis and cardiology is now consulted for preoperative cardiovascular risk stratification. By review of [facility] records the patient
called his PCP on 10/07/2024 to report a right-sided facial droop and was recommended go to the ER, but patient reports his symptoms improved and he did not seek ER care. Patient then saw his PCP on 10/30/2024 and was sent for MRI of the brain and
carotid U/S. Carotid U/S as noted above showed a less than 50% LICA stenosis and 50 to 69% on the right. Patient was then seen in the ER on 11/14/2024 with dizziness and he was concerned that he had increasing symptoms related to his previous TIA,
this prompted CT scan in the ER that did not show any evidence of a subacute stroke and patient was given a 5-day course of antibiotics for a right sided pleural effusion and cough. The patient then noticed amaurosis fugax symptoms 3 days ago and
saw his hadoop developer yesterday and was found to have Hollenhorst plaques prompting referral to the ER. CTA of the neck indicated 75% L ICA lesion and 65% R ICA lesion prompting admission for symptomatic left carotid stenosis. Vascular surgery
scheduled to see the patient and make recommendations regarding revascularization. Cardiology consulted to see the patient for preoperative evaluation. Patient reports sleeping in a chair since September due to symptoms of orthopnea and chronic cough.
He had an ENT evaluation that was unremarkable and no improvement following antibiotic course given in the ER on 11/14/2024. CXR again shows a left-sided pleural effusion and his proBNP is 2730. Patient also reports increased LE edema and had
weeping wounds up until a week ago when his relief cook had him increase Lasix for 3 days, this helped the LE edema and also seemed to help his cough. Patient with known CAD s/p in 1996. No evidence of subsequent cath or PCI. Patient thinks his
last stress test was years ago. Patient also has known permanent A-fib and was taking Lopressor 50 mg BID prior to admission plus Eliquis 5 mg BID.
-ECG reviewed by me shows A-fib with HR [address] changes
-Patient appears to be in acute HF. He has had symptoms of orthopnea and dry cough causing him to sleep in a chair for 3 months. He had some interval improvement following increase Lasix dosing for 3 days ordered by his outpatient relief cook at
[place] a couple of weeks ago. Lasix 40 mg IV now, ordered by me. Will assess diuretic response and order additional doses.
-EF was preserved at 60% with mild to moderate MR by last echo 05/2023. Recheck echo, ordered by me.
-Patient was taking Lopressor prior to admission, pending echo could consider transitioning to a cardioselective BB
-Patient was not taking ALESHA/ARB/aldosterone antagonist/SGLT2 inhibitor prior to admission. Pending echo could consider starting.
-Diet changed to add sodium and fluid restriction
-ECG without acute ischemic change and patient denies chest pain with activity, but admits that he has been lethargic since September and not completed most of his usual activities such as taking his sailboat out in the summer. Lexiscan nuclear stress
test recommended given permanent A-fib, based on timing of MRI we will shoot for Lexiscan stress test on 01/03/2025.
-Diet changed starting 01/02/2025 for caffeine restriction prior to Lexiscan scheduled for 01/03/2025
-Patient noted to have permanent A-fib and was bradycardic on telemetry monitoring prompting delay in MRI study on 01/01/2025 AM. Outpatient dose of Lopressor was already decreased to 25 mg BID and will decrease further to 12.5 mg BID starting on
01/01/2025 PM with a hold parameter for HR less than 60.
-Outpatient dose of Eliquis is on hold in anticipation of surgery and he is being bridged with heparin gtt
-Patient's primary relief cook, Dr. Grigsby, retired and he is now following with 2 different cardiologists because he lives half of his year locally in [place] and the other half at the [facility]. Locally he will follow with Dr. Pace
and at the [facility] he will follow with Dr. Marianne Gutiérrez at [place] [facility] [place].
--- NOTE | 2025-01-01 11:41 | PTCARENOTE ---
attending notified HR 37-42 asymptomatic. cardiology consult
[2025-01-01 12:27] LABS: Ferritin 86.3 ng/ml (17.9-464.0)
[2025-01-01] MEDS: LASIX 40 MG IV (13:09)
[2025-01-01 13:10] LABS: Folate 7.7 ng/ml (2.76-20); Vitamin B12 573 pg/ml (239-931)
--- NOTE | 2025-01-01 13:36 | CON.VAS ---
Addendum entered and electronically signed by Yemi Galindo MD 01/01/25 16:14:
Seen and examined with DEANA Jimenez. Agree with findings as noted below. 79-year-old male with history of CAD/CABG/CHF. Was evaluated about 6 weeks ago for facial droop (patient notes right sided facial droop). Had carotid duplexes that failed to
show any significant stenosis (less than 50%). Now presents with left eye amaurosis type episodes (patient notes a couple episodes of a 'shade' coming down over the left eye). No episodes of unilateral numbness or weakness. No recent speech
dysarthria episodes. No expressive aphasia. Remainder of risk factors as noted below.
On exam/he is awake and alert. He is in no acute distress. Breathing is unlabored. Neurologically no focal deficits.
CT angiogram reviewed. Right distal common carotid artery atherosclerosis noted extending into the bulb. Results in moderate stenosis but not severe. The internal carotid artery beyond here appears patent with no significant stenosis. On the
left side there is a severe carotid bulb plaque that results in likely high-grade focal stenosis. In addition the plaque is irregular appearing with coral reef like projections into the lumen.
Plan/ Symptomatic left carotid artery stenosis., Concerning appearing left carotid plaque on CT scan. Recommend carotid revascularization. Discussed with him my recommendations. Discussed modalities of repair (carotid endarterectomy versus
TCAR). Recommending carotid endarterectomy. Discussed procedure at length including anticipated outcome/recovery. Discussed risks including but not limited to bleeding, infection, cardiac complication/PA, cranial nerve injury, stroke (in the
symptomatic setting 1 to 2%). He understands all and wishes to proceed with left carotid endarterectomy. Will await optimization from a neurologic standpoint as well as cardiac optimization. In symptomatic carotid patient's, I do not generally
necessarily require waiting for complete cardiac assessment before revascularization. However given his risk factors and lack of recent cardiac workup, and in discussion with Dr. Buckley it was felt that he would benefit with preoperative cardiac
workup. Therefore he will undergo echocardiography, and likely stress evaluation. In addition neurology wish for MRI of the brain as well as potentially MRA. Will await the studies to be completed and workup to be completed and then plan
revascularization. If will not be this week based on completion of workup, likely I would plan on OR mid next week.
Original Note:
Consultation
Consultation Request
Date/Time Consultation Performed: 01/01/25 2pm
Performing Provider: Mateo
Reason for Consultation: Carotid stenosis
Medical History
-
Chief Complaint: Visual changes
History of Present Illness:
79 yo male with PMH significant for Afib on eliquis, CAD/CABG, CHF, HTN, HLD, DM presented to the ER today with visual changes. Pt was last here in October 2024 for transient right facial droop and slurred speech. On 11/11/24 he has carotid US
suggesting <50% stenosis bilaterally. Planned for outpatient MRI brain this month with follow up. On 11/14/24 pt returned to ER for dizziness and pressure in his head. CT head at that time was negative. On 12/29/24 he suddenly noticed a translucent
shade coming down over his right upper quadrant vision in his left eye. This occurred 4 times recently, twice within the last two days. He recently saw his eye doctor who noted Hollenhorst plaque and sent him to the ER for evaluation.
Carotid ultrasound was obtained again and is now suggestive of a right ICA 50-69% stenosis. CTA head/neck is suggestive of L ICA 75% and R ICA 65% stenosis.
Pt seen at bedside with Dr Galindo. Pt feels at her baseline health and has not had another event since arriving here.
Past Medical History
Past Medical History: Arrhythmias (afib (eliquis)), CAD, CHF, HTN, Hypothyroidism, NIDDM and Other (HLD, STUART (cpap), osteoarthritis, psoriasis, bursitis, trigger finger IBS, vasomotor rhinitis)
Past Surgical History: Appendectomy, Cardiac (CAGB) and Other (thymoma, b/l cataract removal, L3-L4 ILESI, prostate )
Social History
Tobacco: Former Smoker
Alcohol: None
Drug: None
Family History
Family History: Reviewed & Not Pertinent
Allergies / Home Medications
Allergy/AdvReac Type Severity Reaction Status Date / Time
oxycodone (From Percocet) Allergy Nausea / Verified 12/31/24 19:52
Vomiting
�Medication �Instructions �Recorded �Confirmed �Type
fenofibrate nanocrystallized 48 mg 48 mg PO DAILY High Cholesterol 09/20/11 12/31/24 History
tablet
finasteride 5 mg tablet 5 mg PO DAILY Urinary Issue 09/20/11 12/31/24 History
levothyroxine 200 mcg tablet 200 mcg PO DAILY Thyroid 09/20/11 12/31/24 History
metoprolol tartrate 50 mg tablet 50 mg PO BID Blood Pressure 09/20/11 12/31/24 History
omeprazole 40 mg capsule,delayed 40 mg PO DAILY Gastrointestinal 09/20/11 12/31/24 History
release (Prilosec) Issue
albuterol sulfate 90 mcg/actuation 1 puff inhalation R Q4HPRN PRN 06/25/18 12/31/24 Rx
aerosol inhaler cough,wheezing,short of breath ##1
apixaban 5 mg tablet (Eliquis) 5 mg PO BID Blood Clot 12/31/24 12/31/24 History
Prevention/Tx
fluticasone propionate 50 2 spray intranasal BID Allergies 12/31/24 12/31/24 History
mcg/actuation nasal
spray,suspension
Review of Systems
-
History Source: Patient
All other systems: Negative unless noted
Constitutional: Reports No Symptoms
EENT: Reports No Symptoms
Respiratory: Reports No Symptoms
Cardiac: Reports No Symptoms
Vascular: Denies Leg Pain / Claudication
Abdomen/GI: Reports No Symptoms
: Reports No Symptoms
Musculoskeletal: Reports No Symptoms
Neurological: Reports Other (visual loss- resolved)
Physical Exam
Vital Signs
Temp Pulse Resp BP Pulse Ox
97.8 F 53 16 136/67 96
01/01/25 11:00 01/01/25 11:00 01/01/25 11:00 01/01/25 11:00 01/01/25 11:00
Lab Results
01/01/25 10:25
01/01/25 10:25
Zki-T-Slkiliqsjgn Pept 2730 pg/ml 01/01/25 10:25
Physical Exam
HEENT: Normocephalic and Atraumatic
Respiratory: Non Labored Respirations
Cardiac: Negative JVD
GI: Soft and Non Tender
Musculoskeletal: No Clubbing and No Cyanosis
Skin: Warm
Neuro: Awake, Alert, Oriented and Nonfocal/Grossly Intact
Psych: Calm
Assessment / Plan
-
79 yo male here with symptomatic carotid stenosis
Plan:
MRI/MRA pending
ECHO pending
Stress test pending
Planning for CEA when cleared by cardiology, likely next week. Will follow along
Data Reviewed
-
CT Scan: Discussed with Physician
Ultrasound: Discussed with Physician
Labs: Labs Reviewed by me
[2025-01-01 15:00] VITALS: BP 129/67
--- NOTE | 2025-01-01 16:10 | PTCARENOTE ---
multiple attempts to get PTT, difficult stick. contacting [facility], pt will go to echo after labs obtained
[2025-01-01 16:59] LABS: APTT 62.9 Sec (23.4-35.0)
[2025-01-01] MEDS: CRESTOR 20 MG PO (18:00)
[2025-01-01 19:15] VITALS: BP 131/59
[2025-01-01] MEDS: LOPRESSOR 12.5 MG PO (21:05)
[2025-01-01 23:35] VITALS: BP 128/54
[2025-01-02] VITALS (14 sets, daily range): BP systolic 108–152; BP diastolic 48–65; BMI 29.1
[2025-01-02 00:53] LABS: APTT 99.9 Sec (23.4-35.0)
[2025-01-02] MEDS: SYNTHROID 200 MCG PO (06:24)
[2025-01-02 07:03] LABS: Hematocrit 45.7 % (39.0-52.0); Hemoglobin 14.8 g/dL (13.0-18.0); Mean Corp Hgb Conc. 32.4 g/dL (33.0-37.0); Mean Corpuscular Volume 92.9 fL (80.0-94.0); Platelet Count 250 10^3/uL (130-400); Red Cell Dist. Width 15.9 % (11.5-14.5)
[2025-01-02 07:10] LABS: APTT 99.4 Sec (23.4-35.0)
[2025-01-02] MEDS: LOPRESSOR 12.5 MG PO (08:00)
[2025-01-02] MEDS: TRICOR 48 MG PO (08:00)
[2025-01-02] MEDS: PROSCAR 5 MG PO (08:00)
[2025-01-02] MEDS: TIMOPTIC 0.25% OPHTHALMIC SOLUTION 1 DROP OPHTH (08:01)
[2025-01-02] MEDS: PEPCID 20 MG PO (08:01)
--- NOTE | 2025-01-02 08:45 | W.PN.CARDCBS ---
Addendum entered and electronically signed by Shayna Marley MD 01/02/25 12:53:
I saw and examined the patient.
The Building Equipment Operator's note was reviewed and I agree with the note.
Comment: General: Well developed, well nourished in NAD.
Heart: Non displaced PMI, RRR, no murmurs, No S3, S4, no rubs.
Lungs: Decreased breath sounds at the base
Extremities: No clubbing, cyanosis or edema bilaterally.
Initially admitted with amaurosis fugax and symptomatic left carotid lesion. Patient also with history of coronary disease, valvular heart disease and heart failure with preserved ejection fraction.
Today patient had recurrence of amaurosis fugax. Given this proceeding with further cardiac evaluation such as stress test prior is not warranted given it will not change surgical treatment plan or timing.
Have discussed at length with vascular surgery. He does have some degree of volume overload but we have been diuresing him throughout we will continue to do so. Moderate to severe regurgitant valve abnormality is not a contraindication to surgery
and may eventually even look better after diuresis.
Plan at this time:
He is an acceptable candidate to proceed with carotid endarterectomy timing to be determined by vascular surgery. He is at least moderate but not prohibitive risk and we will follow him throughout.
Continue to monitor EKGs
Continue to monitor telemetry
Continue diuresis and will give an extra dose of diuretic postprocedure
Monitor blood pressure.
He has permanent atrial fibrillation continue heparin and eventually resume oral anticoagulation
Cholesterol at goal. Continue risk factor modification
32 minutes total critical care time seeing patient, discussing care, secure texting from primary service and consultants and then discussion with vascular.
Original Note:
Today's Communication / Plan
-
Continue IV Lasix
Consider CT with PE protocol given echo findings
For nuclear stress test in a.m. as part of risk stratification for upcoming surgery.
Continue heparin
Will assess cost of SGLT2 inhibitors and consider starting this admission
Impression / Plan
-
PCP: Dr. Boyce
Cardiology: Dr. Marianne Gutiérrez at [facility] and Dr. Pace locally
Impression:
Admitted with amaurosis fugax and symptomatic left carotid lesion 12/31/2024
Carotid disease, 75% L ICA and 65% R ICA disease by CTA neck 12/31/2024
Less than 50% LICA and 50 to 69% R ICA stenoses by carotid U/S 12/31/24
TIA symptoms with right-sided facial droop 10/07/24
Acute HFpEF
Mod-severe MR by echo 01/01/2025
RV dilation by echo 01/01/2025
Permanent A-fib
Bradycardia
Chronic Eliquis OAC
CAD
s/p CABG 1996
HTN
Hyperlipidemia
STUART
Echo 06/15/2023: EF 60%, mild to moderate MR, aortic sclerosis without stenosis, mild aortic regurgitation
Echo 01/01/2025: EF 60.5%, diastolic flattening of the interventricular septum consistent with RV volume overload, RV moderately dilated, RV systolic function mildly decreased, moderate to severe MR, mild with peak/mean gradients 20/11 mmHg,
moderate to severe AR, moderate to severe TR
Plan:
-Presented with amaurosis fugax and found to have symptomatic L carotid lesion by CTA 12/31. Cardiology initially consulted for pre-op eval. Also concern for acute heart failure.
-ProBNP elevated at 2730. Has noted SOB and increased LE edema as OP.
-Given a single dose of IV Lasix yesterday, 01/01 and feels improved. Will continue IV Lasix 40 mg twice daily.
-Creatinine stable at 0.8. Weight down 6 pounds overnight if accurate. Down to 197 pounds 01/02.
-Follow daily weights, I&O's.
-Echo 01/01 showed preserved EF with evidence of volume overload. RV moderately dilated with moderate to severe MR, moderate to severe AR, and moderate to severe TR.
-With RV dilation and systolic function mildly decreased, could consider checking CTA of chest to evaluate for PE
-Remains in rate controlled permanent atrial fibrillation by review of telemetry. On Eliquis 5 mg twice daily as outpatient, currently on heparin while awaiting potential vascular surgery
-Continues on metoprolol alone for medical therapy. Eventually could consider addition of SGLT2 inhibitor versus spironolactone. Will hold off given plan for surgery.
-Will have CM assess cost of SGLT2 inhibitor.
-He is planned for Lexiscan nuclear stress test Wednesday 01/03 as part of preoperative risk stratification.
-On fenofibrate as OP, LDL above goal at 80. New to rosuvastatin 20mg daily.
HPI: Patient came to the ER yesterday with symptoms of amaurosis fugax and was admitted with symptomatic left carotid stenosis and cardiology is now consulted for preoperative cardiovascular risk stratification. By review of [facility] records the patient
called his PCP on 10/07/2024 to report a right-sided facial droop and was recommended go to the ER, but patient reports his symptoms improved and he did not seek ER care. Patient then saw his PCP on 10/30/2024 and was sent for MRI of the brain and
carotid U/S. Carotid U/S as noted above showed a less than 50% LICA stenosis and 50 to 69% on the right. Patient was then seen in the ER on 11/14/2024 with dizziness and he was concerned that he had increasing symptoms related to his previous TIA,
this prompted CT scan in the ER that did not show any evidence of a subacute stroke and patient was given a 5-day course of antibiotics for a right sided pleural effusion and cough. The patient then noticed amaurosis fugax symptoms 3 days ago and
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 CTA of the neck indicated 75% L ICA lesion and 65% R ICA lesion prompting admission for symptomatic left carotid stenosis. Vascular surgery
scheduled to see the patient and make recommendations regarding revascularization. Cardiology consulted to see the patient for preoperative evaluation. Patient reports sleeping in a chair since September due to symptoms of orthopnea and chronic cough.
He had an ENT evaluation that was unremarkable and no improvement following antibiotic course given in the ER on 11/14/2024. CXR again shows a left-sided pleural effusion and his proBNP is 2730. Patient also reports increased LE edema and had
weeping wounds up until a week ago when his brake repairer bus had him increase Lasix for 3 days, this helped the LE edema and also seemed to help his cough. Patient with known CAD s/p in 1996. No evidence of subsequent cath or PCI. Patient thinks his
last stress test was years ago. Patient also has known permanent A-fib and was taking Lopressor 50 mg BID prior to admission plus Eliquis 5 mg BID.
Progress Note - Ob Tech
Subjective
Date of Service: January 02, 2025
Edema and breathing somewhat improved following dose of IV Lasix.
Objective
Labs:
01/02/25 06:36
01/01/25 10:25
Labs
Hgb 14.8 g/dL (13.0-18.0) 01/02/25 06:36
Hct 45.7 % (39.0-52.0) 01/02/25 06:36
Plt Count 250 10^3/uL (130-400) 01/02/25 06:36
APTT 99.4 Sec (23.4-35.0) H 01/02/25 06:36
Sodium 143 mmol/L (135-145) 01/01/25 10:25
Potassium 4.0 mmol/L (3.5-5.1) 01/01/25 10:25
BUN 18 mg/dl (9-20) 01/01/25 10:25
Creatinine 0.8 mg/dL (0.7-1.3) 01/01/25 10:25
Glucose 107 mg/dl (70-99) H 01/01/25 10:25
Vital Signs and I&O:
Vital Signs
Temp Pulse Resp BP Pulse Ox
97.3 F 63 20 152/65 97
01/02/25 07:05 01/02/25 08:00 01/02/25 07:05 01/02/25 08:00 01/02/25 07:05
Vital Signs
Temp Pulse Resp BP Pulse Ox
97.3 F 63 20 152/65 97
01/02/25 07:05 01/02/25 08:00 01/02/25 07:05 01/02/25 08:00 01/02/25 07:05
Intake & Output
12/31/24 01/01/25 01/02/25 01/03/25
06:59 06:59 06:59 06:59
Intake Total 480 / 480
Balance 480 / 480
Physical Exam
Physical Exam
GEN: No distress, awake, alert, oriented x3
HEENT: supple, anicteric, mmm
LUNGS: crackles b/l bases
CV: irregularly irregular, S1/S2, 2/6 syst murmur
EXT: No clubbing or cyanosis, +2 edema b/l LE
NEURO: Gross non-focal
SKIN: Warm, dry, no rash
--- NOTE | 2025-01-02 09:33 | W.PN.NEURO.1 ---
Addendum entered and electronically signed by Alhaji Lane MD 01/02/25 10:44:
Second correction: Do not add antiplatelet agents as patient is planned to be returned to Apixaban.
Addendum entered and electronically signed by Alhaji Lane MD 01/02/25 10:41:
Correction: Patient should be maintained on heparin alone, the addition of antiplatelet agents may lead to hemorrhagic conversion of acute ischemic stroke. The use of antiplatelet agents following the use of heparin in the form of aspirin 81 mg
alone would be reasonable.
Original Note:
Today's Communication / Plan
-
Check MRA head and neck to compare with other testing
Agree with carotid procedure. May be performed 48 hours after onset of symptoms
Continue antiplatelet therapies
Neuro Assessment/Plan
Assessment
Abrupt onset of left eye visual loss with prior history of dizziness and distant history of sudden right ear hearing loss (2015)
Most likely due to embolic phenomena
Plan
Check MRA head and neck to compare with other testing
Agree with carotid procedure. May be performed 48 hours after onset of symptoms
Continue antiplatelet therapies
Will follow as needed.
Subjective/Objective
Subjective Data
Date of Service: January 02, 2025
Objective Data
Vital Signs
Temp Pulse Resp BP Pulse Ox
36.3 C 63 20 152/65 97
01/02/25 07:05 01/02/25 08:00 01/02/25 07:05 01/02/25 08:00 01/02/25 07:05
Lab Results
01/02/25 06:36
01/01/25 10:25
APTT 99.4 Sec (23.4-35.0) H 01/02/25 06:36
Sodium 143 mmol/L (135-145) 01/01/25 10:25
Potassium 4.0 mmol/L (3.5-5.1) 01/01/25 10:25
BUN 18 mg/dl (9-20) 01/01/25 10:25
Glucose 107 mg/dl (70-99) H 01/01/25 10:25
Calcium 9.4 mg/dl (8.4-10.2) 01/01/25 10:25
Lhd-G-Iseepflwiiv Pept 2730 pg/ml 01/01/25 10:25
LDL Cholesterol, Calc 80 mg/dl 01/01/25 10:25
Vitamin B12 573 pg/ml (239-931) 01/01/25 10:25
Patient Allergies
oxycodone (From Percocet) Allergy (Verified 12/31/24 19:52)
Nausea / Vomiting
Past History
Past History
ED Past Medical History: CAD, HTN and Other (Carotid stenosis)
ED Past Surgical History: Cardiac and Other (Thymoma)
Social History
Tobacco: Non-smoker
Alcohol: None
Drug: None
Personal: Single
Living: with family
Employment: Employed
Family History
Family History: Negative Early CAD
Medications
-
Medications:
Generic Name Dose Route Start Last Admin
Trade Name Freq PRN Reason Stop Dose Admin
Acetaminophen 650 mg 12/31/24 21:25
Acetaminophen 325 Mg Tablet PO 01/28/25 21:24
Q4HPRN PRN
mild pain/CALVILLO/temp> 100.4F
Albuterol 1 puff 12/31/24 21:25
Albuterol Hfa [90 Mcg/Dose] Inhaler INH
R Q4HPRN PRN
cough,wheezing,short of breath
Protocol
Bisacodyl 10 mg 12/31/24 21:25
Bisacodyl 10 Mg Rectal Suppository RECTAL 01/28/25 21:24
[id number] PRN
constipation
Famotidine 20 mg 01/01/25 08:00 01/02/25 08:01
Famotidine 20 Mg Tablet PO 01/29/25 07:59 20 mg
DAILY JONA Administration
Fenofibrate 48 mg 01/01/25 08:00 01/02/25 08:00
Fenofibrate 48 Mg Tablet PO 01/29/25 07:59 48 mg
DAILY JONA Administration
Finasteride 5 mg 01/01/25 08:00 01/02/25 08:00
Finasteride 5 Mg Tablet PO 01/29/25 07:59 5 mg
DAILY JONA Administration
Furosemide 40 mg 01/01/25 08:00 01/01/25 09:06
Furosemide 40 Mg Tablet PO 01/29/25 07:59 40 mg
On Hold: 01/01/25 12:43 DAILY JONA Administration
Heparin Sodium 25,000 units in 250 mls @ 0 mls/hr 12/31/24 20:00 12/31/24 20:28
Heparin 43533 Units/250 Ml IV 250 mls
PER PROTOCOL JONA Administration
Protocol
Per Protocol
Levothyroxine Sodium 200 mcg 01/01/25 06:00 01/02/25 06:24
Levothyroxine 200 Mcg Tablet PO 01/29/25 05:59 200 mcg
DAILY @ 0600 JONA Administration
Lorazepam 1 mg 12/31/24 21:25
Lorazepam 1 Mg Tablet PO 01/28/25 21:24
DAILYPRN PRN
anxiety
Metoprolol Tartrate 12.5 mg 01/01/25 20:00 01/02/25 08:00
Metoprolol 12.5 Mg Regular Release Dose (1/2 Of 25 Mg Tablet) PO 01/29/25 19:59 12.5 mg
BID JONA Administration
Ondansetron HCl 4 mg 12/31/24 21:25
Ondansetron 4 Mg/2 Ml Vial IV 01/28/25 21:24
Q6HPRN PRN
nausea and vomiting
Pantoprazole Sodium 40 mg 01/01/25 08:00
Pantoprazole 40 Mg Delayed Release Tablet PO 01/29/25 07:59
DAILYPRN PRN
GERD
Polyethylene Glycol 17 grams 12/31/24 21:25
Polyethylene Glycol Powder 17 Grams Packet PO 01/28/25 21:24
DAILYPRN PRN
constipation
Rosuvastatin Calcium 20 mg 01/01/25 18:00 01/01/25 18:00
Rosuvastatin (Crestor) 20 Mg Tablet PO 01/29/25 17:59 20 mg
QPM JONA Administration
Senna/Docusate Sodium 1 tablet 12/31/24 21:25
Docusate W/Senna (Anjelica-Colace) Tablet PO 01/28/25 21:24
BIDPRN PRN
constipation
Sodium Chloride 0 flush 12/31/24 22:00
Sodium Chloride 0.9% (Flush) Syringe IV 01/28/25 21:59
PER PROTOCOL JONA
Timolol Maleate 0 drop 01/01/25 08:00 01/02/25 08:01
Timolol 0.25% (Ophthalmic Solution) Bottle OPHTH 01/29/25 07:59 1 drop
BID JONA Administration
--- NOTE | 2025-01-02 10:33 | W.PN.HOSP.TC ---
Addendum entered and electronically signed by David Lopez DO 01/02/25 12:43:
Cardiology recommends not using Eliquis yet and continuing IV heparin given potential need for cardiac revascularization.
Nursing mention that his left eye amaurosis symptoms are back. Updated vascular surgery.
Original Note:
Today's Communication/Plan
-
Change IV heparin to Eliquis
Follow-up MRA of neck
N.p.o. after midnight
Assessment / Plan
Assessment / Plan
Gen-AAOx3, NAD
HEENT-NC, AT, anicteric, clear oral mm
Neck-supple
CV-reg, no M, +S1/S2
Lungs-clear B/L
Abd-soft, NT, ND
Ext-bilateral ankle edema
Musculoskeletal-no cyanosis, clubbing
Skin-warm and dry
Neuro-grossly non-focal
Psych-calm, cooperative
Acute left hemispheric strokes -noted on brain MRI involving the left frontal region including the left anterior insula. This corresponds with the left-sided carotid stenosis. Left-sided transient vision loss.
MRA of head shows no evidence of high-grade stenosis involving the middle cerebral arteries. Diminished flow signal and vessel caliber of the branches of the left middle cerebral artery when compared to the right. Moderate diffuse irregularity and
diminished caliber of the right posterior cerebral artery when compared to the left. Neck MRA pending.
Spoke with neurology service, they are not recommending starting antiplatelet therapy due to treatment with anticoagulation. Currently on IV heparin. Concern for hemorrhagic conversion.
Symptomatic left carotid stenosis -2 episodes of transient left monocular vision loss primarily involving the right upper quadrant of the left eye. Symptoms resolved. Noted to have Hollenhorst plaques on retinal exam by mortgage coordinator, referred
to the emergency room for admission.
CTA of head and neck noted, 75% stenosis of the left ICA. 65% right sided.
MRA of neck pending.
Vascular surgery plans on left carotid endarterectomy Monday of next week, discussed with Dr. Galindo.
Cardiology consulted for preop assessment. Recommendation for nuclear stress test Wednesday 01/03.
Acute heart failure with preserved EF exacerbation -BNP elevated. Getting IV Lasix. Cardiology following. Feels somewhat better in terms of shortness of breath.
Echocardiogram shows LVEF of 60% with valvular heart disease. Moderate to severe AR, moderate to severe MR, moderate to severe TR. RV volume overload.
CAD -with four-vessel CABG 1995. Denies exertional chest pain or pressure. Does have occasional exertional shortness of breath.
He states he sees a dresser tender in [place], Dr. Gutiérrez.
Nuclear stress test done in [facility] March 2021 was negative for ischemia.
Atrial fibrillation -unknown type. Vascular surgery okay with changing IV heparin back to Eliquis.
Essential hypertension -stable.
COPD without exacerbation
Hyperlipidemia -continue Crestor.
STUART -noncompliant with home CPAP.
Hypothyroidism -levothyroxine. TSH 6.5, free T4 2.1.
IBS
Obesity due to excess calories
Full code
Anticipated Discharge: 24 - 48 hours
Subjective/Interval History
-
Date of Service: January 02, 2025
Patient seen and examined. No complaints.
Objective Data
-
Labs:
Laboratory Results
01/02/25 01/02/25
00:13 06:36
WBC 7.3
Hgb 14.8
Hct 45.7
Plt Count 250
APTT 99.9 H 99.4 H
Vital Signs:
Vital Signs
Temp Pulse Resp BP Pulse Ox
97.3 F 63 20 152/65 97
01/02/25 07:05 01/02/25 08:00 01/02/25 07:05 01/02/25 08:00 01/02/25 07:05
I&O
01/01/25 01/02/25 01/03/25
06:59 06:59 06:59
Intake Total 480 / 480
Balance 480 / 480
Review of Systems
-
History Source: Patient
All other systems: Reviewed and negative
[2025-01-02] MEDS: LASIX 40 MG IV (10:42)
--- NOTE | 2025-01-02 11:58 | PTCARENOTE ---
Pt c/o increased blurriness in L eye. made aware.
--- NOTE | 2025-01-02 13:02 | PTCARENOTE ---
Vascular team at bedside placed heparin gtt on standby and instructed this RN to keep heparin gtt on hold until procedure performed and complete. Dr. Galindo at bedside.
--- NOTE | 2025-01-02 13:03 | W.PN.UPDATE ---
Addendum entered and electronically signed by Yemi Glaindo MD 01/02/25 14:25:
Relayed plan to neurologist also , who is in agreement with proceeding.
Original Note:
Update Note
Progress Note Update
I was informed that patient was having recurrent left amaurosis type symptoms. Evaluated patient and he does note to me left eye visual disturbance/partial loss. He notes that its mostly resolved now. Similar to what he had had prior. Again left
eye I discussed with hospitalist as well as wood flour miller. He is having crescendo TIA type symptoms. Therefore would recommend more expeditious carotid revascularization. Discussed with patient as well. All are in agreement to proceed with left
carotid endarterectomy more expeditiously. Certainly he is at increased cardiac risk, but he is being optimized currently.
[2025-01-02] MEDS: PERIDEX 0.12% ORAL RINSE 15 ML PO (13:23)
[2025-01-02] MEDS: BACTROBAN 2% OINTMENT 1 APPLIC NASAL (13:23)
--- NOTE | 2025-01-02 13:29 | PTCARENOTE ---
Surgical site clipped with electric razor and CHG wipes provided.
--- NOTE | 2025-01-02 14:04 | PTCARENOTE ---
Pt requested update, made aware.
--- NOTE | 2025-01-02 14:24 | W.SUR.PREOP ---
Pre-Operative Surgical Note
-
I have examined this patient prior to the performance of the scheduled procedure.
The patient's condition is unchanged from the time of the current History and
Physical and the patient is able to undergo the scheduled procedure.
[2025-01-02 14:45] LABS: ACT-LR - POC 158 Seconds (116-155)
[2025-01-02 15:22] LABS: ACT-LR - POC 313 Seconds (116-155)
--- NOTE | 2025-01-02 16:03 | OR.RPT ---
Operative Report
Operative Report
PROCEDURE DATE: 01/02/2025
Preoperative diagnosis: Symptomatic left carotid artery stenosis with crescendo TIAs.
Postoperative diagnosis: Same
Procedure: Left carotid endarterectomy with bovine pericardial patch angioplasty and intraoperative EEG/SSEP monitoring.
Surgeon: Mateo
Wire Photo Operator: DEANA Jimenez, required for all aspects of procedure including assistance with traction/countertraction, following suture line, assistance with closure.
Complications: None
Anesthesia: General
Indications for procedure:
Symptomatic left carotid artery stenosis. Amaurosis episodes. Also few weeks prior had had episode of facial droop. Was admitted and being worked up with cardiac workup due to history of cardiac disease. During that time had recurrent episodes
of left eye amaurosis. Due to concern for crescendo TIAs, he was brought to the OR after discussion with all consultants. Risk/benefits/alternatives also discussed the additional wished to proceed.
Description of procedure:
Patient was identified brought to the operating room placed on the table in supine position. After the adequate administration of anesthesia and perioperative antibiotics he was prepped and draped in the standard surgical fashion. A standard
preoperative timeout was undertaken and everybody was in agreement the plan. A standard longitudinal incision was made in the left neck that was carried through the skin subcutaneous tissue. Using the electrocautery dissection was carried through
the platysma muscle layer and then alongside the anterior medial border of the sternocleidomastoid muscle. Then using a combination of sharp dissection with the Metzenbaum scissors and electrocautery I dissected along the anterior medial border of
the internal jugular vein. The common facial vein branch was ligated between silk ties and then divided. I then deepened my retraction. The common carotid artery was identified and carefully dissected away from the surrounding structures take
great care to avoid any injury to the structures. A vessel loop was passed around it which was double looped, but not yet tightened. Note the vagus nerve was in its usual location posterior/lateral to the common carotid artery, and was protected
from harm's way. I then continued my dissection up the common carotid artery to the bulb staying only on the anterior surface of the carotid artery. Then I carried the dissection up to the internal carotid artery and then to the mid to distal
internal carotid artery. I identified where it was soft and carefully circumferentially dissected the internal carotid artery with minimal mobilization and passed a vessel loop around it. Note the hypoglossal nerve was not visualized and felt to
be further cephalad. The patient was given an appropriate dose of heparin 7000 units. (Patient had been on a heparin drip prior which was stopped prior to the OR. Prior ACT was 158. Following heparin administration, ACT was over 300). Next I
dissected the anterior surface of the external carotid artery and superior thyroid branches. These were then carefully circumferentially dissected with minimal mobilization and vessel loops passed around these which were double looped but not yet
tightened. After 3 minutes of heparin circulation time and confirmation of optimization of the blood pressure with my anesthesiology colleagues (and confirmation of ACT), I clamped the distal internal carotid artery where it was soft. There was no
immediate EEG or SSEP changes. After 1 minute of test clamp time there was no changes noted. Therefore at this point, the vessel loops on the external carotid artery and superior thyroid branches were tightened and the common carotid artery was
clamped where it was soft proximally. An arteriotomy was made on the common carotid artery with an 11 blade and extended using a Pope scissor. I extended the arteriotomy onto the mid to distal internal carotid artery. There was hard calcified
plaque at the carotid bulb. And at the bulb/into the origin of the internal carotid artery, there was a severe stenosis. This in fact made it hard for me to even cut through with my Pope scissor. Clearly resulted in significant stenosis. A
[place] was then used to endarterectomized the plaque. An endarterectomy plane was created, and the plaque was then endarterectomized. Distally I feathered the plaque out to a nice clean endpoint in the distal internal carotid artery. Next I
endarterectomized the intima back to normal intima in the common carotid artery, and the intima was cut flush there. I then grasped the plaque and everted plaque out of the origin of the external carotid artery. The plaque was then sent off for
specimen. The origin of the external carotid artery was carefully visualized and any fine debris were removed with fine forceps. Proximal and distal endpoints were then carefully inspected. Any fine debris was removed with fine forceps, and the
intima was noted to be nicely adherent proximally and distally. Next any fine debris were removed throughout the endarterectomy bed with fine forceps. I then flushed heparinized saline. I was very satisfied. Then, I used a bovine pericardial
patch to sew a patch angioplasty with a running 6-0 Prolene suture. Prior to completing and tying down my suture line, I backbled sequentially each branch and reclamped each branch prior to unclamping the next branch. I then irrigated with
heparinized saline. Then I completed and tied down my suture line. We then restored flow in the common carotid and external carotid arteries. Finally, we released flow in the internal carotid artery. There was excellent pulsatile flow in all 3
vessels. There was an excellent Doppler signal in the internal carotid artery distal to the patch with a good normal low resistance Doppler signal. There was a good Doppler signal in the external carotid artery as well. A couple 6-0 Prolene
[id number] sutures were placed along any bleeding points along the suture line. Protamine was given to reverse the heparin. Hemostasis was completely achieved. We then irrigated and confirmed full hemostasis. We then closed in layers with
2-0 Vicryl layer to reapproximate the sternocleidomastoid muscle, followed by 3-0 Vicryl platysma muscle running layer, followed by 4-0 Monocryl subcuticular stitch. Dermabond was applied. The patient tolerated procedure well. He awoke moving all
extremities to command with tongue in the midline. All sponge, needle, instrument counts were correct at the end of the case. Patient was transported to recovery room in stable condition.
--- NOTE | 2025-01-02 16:08 | W.SUR.POST ---
Surgical Immediate Post Op
Note
Pre Op Diagnosis: Symptomatic carotid stenosis
Post Op Diagnosis: Same
Procedure Performed: Left carotid endarterectomy with bovine pericardial patch angioplasty and EEG monitoring
Primary Surgeon: Mateo
Assist: Tony BOWLES
Anesthesia: General
Estimated Blood Loss: 15 cc
Fluids: See anesthesia flowsheet
Drains/Shunts: None
Specimens/Cultures: Carotid plaque
Doppler/Duplex/Angio (Y/N): Yes
Complications: None
Operative Findings: Woke from anesthesia moving all extremities
[2025-01-02] MEDS: SUBLIMAZE 25 MCG IV ×2 (16:36→16:49)
[2025-01-02 16:47] LABS: Hematocrit 42.9 % (39.0-52.0); Hemoglobin 14.5 g/dL (13.0-18.0); Mean Corp Hgb Conc. 33.8 g/dL (33.0-37.0); Mean Corpuscular Volume 91.1 fL (80.0-94.0); Platelet Count 249 10^3/uL (130-400); Red Cell Dist. Width 15.9 % (11.5-14.5)
[2025-01-02 16:57] LABS: INR 1.25; PT 16.2 Sec (11.4-14.6)
[2025-01-02 17:08] LABS: Blood Urea Nitrogen 17 mg/dl (9-20); Calcium 8.9 mg/dl (8.4-10.2); Carbon Dioxide 27 mmol/L (22-30); Chloride 104 mmol/L (98-107); Estimated Creatinine Clearance 72 ml/min; Glucose 109 mg/dl (70-99); Potassium 3.7 mmol/L (3.5-5.1); Sodium 139 mmol/L (135-145); eGFR > 60.00
[2025-01-02 17:52] LABS: Glucose - Point of Care 107 mg/dl (70-99)
[2025-01-02] MEDS: NSS 1000 IV (17:55)
[2025-01-02] MEDS: ZOFRAN 4 MG IV (18:00)
[2025-01-02] MEDS: LASIX IV (18:27)
--- NOTE | 2025-01-02 19:05 | PTCARENOTE ---
1734-Received pt from PACU via bed.Pt is awake,alert,oriented.+4-5 MELARA.No drift or droop noted.Tongue is midline.Speech is appropriate without dysarthria.LA 3mm.Denies any visual disturbance.Denies pain.A Fib noted.Right radial A Line +
correlation to NIBP.IVF infusing as ordered.Lungs CTA.Simple mask intact.POX 97%c/o nausea.Received Zofran as requested.No BM.No void at this time.Left neck incision intact with surgical glue.No edema or drainage noted.Pt's came to see pt.Plan
of care discussed with pt.1600 Lasix held as per MD order.
[2025-01-02] MEDS: LOPRESSOR PO (20:48)
[2025-01-02] MEDS: CRESTOR 20 MG PO (21:28)
[2025-01-02] MEDS: DESENEX/MITRAZOL/ZEASORB 1 APPLIC TOPICAL (21:29)
[2025-01-02] MEDS: TIMOPTIC 0.5% OPHTHALMIC SOLUTION 1 DROP LEFT EYE (21:29)
[2025-01-03] VITALS (20 sets, daily range): BP systolic 95–136; BP diastolic 44–67; PULSE 71; O2SAT 96; BMI 28.4
--- NOTE | 2025-01-03 00:30 | PTCARENOTE ---
S/P left CEA. GCS 15, MELARA, incision approximated with skin glue intact. No c/o pain/headache. Ice to neck as ordered. Afebrile. Afib rate of 50, PM loressor held 2/2 heart rate. Art line flushed/zeroed, correlates with cuff. 120s/50s. SBP goal
appreciated. Pulses palpable, no edema. Nasal cannula as needed to maintain sat 92%. Tolerated dinner, ate about 50%. Voiding. Right groin rash seen, fungal powder applied. Will monitor
--- NOTE | 2025-01-03 04:00 | PTCARENOTE ---
AM labs sent and pending. AM care provided. Will monitor.
[2025-01-03 04:11] LABS: INR 1.19; PT 15.6 Sec (11.4-14.6)
[2025-01-03 04:12] LABS: APTT 32.2 Sec (23.4-35.0)
[2025-01-03 04:20] LABS: Hematocrit 41.5 % (39.0-52.0); Hemoglobin 13.8 g/dL (13.0-18.0); Mean Corp Hgb Conc. 33.3 g/dL (33.0-37.0); Mean Corpuscular Volume 92.4 fL (80.0-94.0); Platelet Count 187 10^3/uL (130-400); Red Cell Dist. Width 15.8 % (11.5-14.5)
[2025-01-03 04:33] LABS: Urine Character Clear (Clear)
[2025-01-03 04:52] LABS: Urine Red Blood Cell 0-2 /HPF (0-2); Urine Squamous Cell None seen /LPF (Few); Urine White Cell None Seen /HPF (0-5)
[2025-01-03 04:55] LABS: Blood Urea Nitrogen 20 mg/dl (9-20); Calcium 8.7 mg/dl (8.4-10.2); Carbon Dioxide 24 mmol/L (22-30); Chloride 108 mmol/L (98-107); Estimated Creatinine Clearance 83 ml/min; Glucose 134 mg/dl (70-99); Potassium 3.8 mmol/L (3.5-5.1); Sodium 141 mmol/L (135-145); eGFR > 60.00
[2025-01-03] MEDS: SYNTHROID 200 MCG PO (06:21)
[2025-01-03] MEDS: NSS 1000 IV (06:22)
--- NOTE | 2025-01-03 07:53 | W.PN.HOSP.TC ---
Today's Communication/Plan
-
Continue current care
Assessment / Plan
Assessment / Plan
Gen-AAOx3, NAD
HEENT-NC, AT, anicteric, clear oral mm
Neck-supple, left neck surgical scar intact
CV-reg, no M, +S1/S2
Lungs-clear B/L
Abd-soft, NT, ND
Ext-bilateral ankle edema
Musculoskeletal-no cyanosis, clubbing
Skin-warm and dry
Neuro-grossly non-focal
Psych-calm, cooperative
Acute left hemispheric strokes -noted on brain MRI involving the left frontal region including the left anterior insula. This corresponds with the left-sided carotid stenosis. Left-sided transient vision loss.
Symptomatic left carotid stenosis -2 episodes of transient left monocular vision loss (amaurosis fugax) primarily involving the right upper quadrant of the left eye. Symptoms recurred 01/02. Noted to have Hollenhorst plaques on retinal exam by
channel program manager, referred to the emergency room for admission.
CTA of head and neck noted, 75% stenosis of the left ICA. 65% right sided.
MRA of neck showed 64% bulb/proximal ICA stenosis.
Underwent successful left carotid endarterectomy 01/02. Stable this morning but states he had transient and brief amaurosis symptoms of the left eye overnight.
Acute heart failure with preserved EF exacerbation -BNP elevated. Getting IV Lasix. Cardiology following. Feels somewhat better in terms of shortness of breath. Weight is coming down.
Echocardiogram shows LVEF of 60% with valvular heart disease. Moderate to severe AR, moderate to severe MR, moderate to severe TR. RV volume overload.
CAD -with four-vessel CABG 1995. Denies exertional chest pain or pressure. Does have occasional exertional shortness of breath.
He states he sees a mill platform supervisor in [place], Dr. Gutiérrez.
Nuclear stress test done in [facility] March 2021 was negative for ischemia.
Ischemic workup per cardiology.
Atrial fibrillation -unknown type. Anticoagulation currently on hold. Resume Eliquis when okay with vascular and cardiology.
Essential hypertension -stable.
COPD without exacerbation
Hyperlipidemia -continue Crestor.
STUART -noncompliant with home CPAP.
Hypothyroidism -levothyroxine. TSH 6.5, free T4 2.1.
IBS
Obesity due to excess calories
Full code
Dispo -pending cardiology, vascular surgery input. Patient eager to go home.
Anticipated Discharge: Within 24 hours
Subjective/Interval History
-
Date of Service: January 03, 2025
Patient seen and examined. No complaints.
Objective Data
-
Labs:
Laboratory Results
01/03/25
03:36
WBC 7.2
Hgb 13.8
Hct 41.5
Plt Count 187 D
PT 15.6 H
INR 1.19
APTT 32.2
Sodium 141
Potassium 3.8
Chloride 108 H
Carbon Dioxide 24
BUN 20
Creatinine 0.7
Glucose 134 H
Calcium 8.7
Vital Signs:
Vital Signs
Temp Pulse Resp BP Pulse Ox
97.6 F 55 16 109/52 99
01/03/25 07:35 01/03/25 05:00 01/03/25 05:00 01/02/25 18:00 01/03/25 05:00
I&O
01/02/25 01/03/25 01/04/25
06:59 06:59 06:59
Intake Total 1540 / 1620 80 / 80
Output Total 500 / 500
Balance 1040 / 1120 80 / 80
Review of Systems
-
History Source: Patient
All other systems: Reviewed and negative
--- NOTE | 2025-01-03 07:58 | W.PN.VS ---
Addendum entered and electronically signed by Adriel Bradford III, MD 01/03/25 14:54:
This patient was seen and examined in collaboration with JELENA Oseguera. I agree with the history and physical exam as well as the assessment and plan. I have the following additions:
Left CEA yesterday
Visual symptoms this morning
CTA of the head and neck performed and personally reviewed
Carotid endarterectomy site is widely patent with no evidence of stenosis or filling defects
On exam he is in no acute distress
at bedside
Neck incision soft, clean
Grossly non focal neuro
Medical therapy
Continue workup for visual symptoms
Neuro/cardiology
Call with questions/concerns
Signed:
Adriel Bradford III, MD
Vascular Surgery
[facility]
Addendum entered and electronically signed by JELENA Oseguera 01/03/25 08:41:
Notified by RN that patient is having differing visual symptoms, (blurred vision to the left eye). Overnight patient had 2 episodes of ' transparent curtain coming mcfp down'.
Discussed with Dr. Galindo
CTA head and neck ordered urgently
Original Note:
Today's Communication / Plan
-
Discussed with Dr. Bradford
Assessment/Plan
-
Postop day 1 left CEA
Plan:
DC A-line
Out of bed/ambulate
Regular diet
DC IV fluids
P.o. medications
Can restart Eliquis tonight
Subjective Data
-
Date of Service: January 03, 2025
Patient seen at bedside this a.m. Patient offers no complaints this time. Admits to 2 episodes of left eye ' translucent curtain coming part way down,' patient states is exactly the same as preop. Patient states the events lasted less than 1
minute, he believes they are movement related.
Objective Data
-
Vital Signs
Temp Pulse Resp BP Pulse Ox
97.6 F 55 16 109/52 99
01/03/25 07:35 01/03/25 05:00 01/03/25 05:00 01/02/25 18:00 01/03/25 05:00
Intake and Output
01/02/25 01/03/25 01/04/25
06:59 06:59 06:59
Intake Total 1540 / 1620 80 / 80
Output Total 500 / 500
Balance 1040 / 1120 80 / 80
Intake:
Oral fluids 480 / 480
IV fluids (Total) 1060 / 1140 80 / 80
NORM SALNIE 100 / 100
Nss 1,000 ml @ 80 mls/hr IV . 960 / 1040 80 / 80
[id number] [facility] Rx#:[id number]
Output:
Urine, Voided 500 / 500
Other:
Number of approximated MODERATE 3
amounts of urine
Number of approximated LARGE 1
amounts of urine
Lab Results
01/03/25 03:36
01/03/25 03:36
Calcium 8.7 mg/dl (8.4-10.2) 01/03/25 03:36
Magnesium 2.1 mg/dl (1.6-2.3) 01/01/25 10:25
Total Bilirubin 1.4 mg/dl (0.2-1.3) H 12/31/24 15:09
AST 24 U/L (17-59) 12/31/24 15:09
ALT 14 U/L (0-50) 12/31/24 15:09
Alkaline Phosphatase 56 U/L (38-126) 12/31/24 15:09
Total Protein 6.9 g/dl (6.3-8.2) 12/31/24 15:09
Albumin 4.6 g/dl (3.5-5.0) 12/31/24 15:09
Physical Exam
-
AAO x 3
No tachypnea on room air
No tachycardia
Abdomen soft
Neck site clean, dry, intact, soft, flat
Moves all extremities
Tongue midline
[2025-01-03] MEDS: DESENEX/MITRAZOL/ZEASORB 1 APPLIC TOPICAL ×2 (08:08→19:49)
[2025-01-03] MEDS: LASIX 60 MG IV ×2 (08:08→16:36)
[2025-01-03] MEDS: PEPCID 20 MG PO (08:10)
[2025-01-03] MEDS: TRICOR 48 MG PO (08:11)
[2025-01-03] MEDS: PROZAC 20 MG PO (08:11)
[2025-01-03] MEDS: PROSCAR 5 MG PO (08:11)
[2025-01-03] MEDS: LOPRESSOR PO (08:12)
[2025-01-03] MEDS: TIMOPTIC 0.5% OPHTHALMIC SOLUTION 1 DROP LEFT EYE ×2 (08:12→19:48)
--- NOTE | 2025-01-03 09:56 | PTCARENOTE ---
0715-pt awake and alert.Speech is appropriate.No dysarthria,drift or droop noted.Tongue is midline.+4-5/5 MELARA noted.Assisted OOB to chair with minimal assistance.Gait is steady.Denies discomfort.A Fib noted.Laquita and IVF discontinued as
ordered.Lungs CTA with slight decreased bibasilar.POX 95-97% on RA.Occasional non productive cough noted.No BM.Voiding yellow urine.Left neck incision intact,approximated with surgical adhesive.No edema or drainage noted.Plan of care discussed with
pt.
[id number] c/o left eye blurriness in right upper quad.This is described as looking through a diaphanous fabric.Dr Rhoades at bedside as this occurred. This resolved spontaneously.BP at this time 113/51.Vascular SCROLL ASSEMBLER Katlyn made aware.
0915-CTA completed as ordered.Pt c/o intermittent left fingertip tingling that lasted for 2 minutes then spontaneously resolved.DEANA Potts made aware.
--- NOTE | 2025-01-03 10:49 | W.PN.CARDCBS ---
Today's Communication / Plan
-
For heart failure with preserved ejection fraction and valvular heart disease continue diuresis
Continue to follow heart rate and blood pressure
Heart rate is on the low side of metoprolol parameters placed
Continue evaluation of neurologic symptoms and post CEA care
Follow telemetry
Impression / Plan
-
PCP: Dr. Boyce
Cardiology: Dr. Marianne Gutiérrez at [facility] and Dr. Pace locally
Impression:
Status post left carotid endarterectomy 01/02/2025
Admitted with amaurosis fugax and symptomatic left carotid lesion 12/31/2024
Carotid disease, 75% L ICA and 65% R ICA disease by CTA neck 12/31/2024
Less than 50% LICA and 50 to 69% R ICA stenoses by carotid U/S 12/31/24
TIA symptoms with right-sided facial droop 10/07/24
Acute HFpEF
Mod-severe MR by echo 01/01/2025
RV dilation by echo 01/01/2025
Permanent A-fib
Bradycardia
Chronic Eliquis OAC
CAD
s/p CABG 1996
HTN
Hyperlipidemia
STUART
Echo 06/15/2023: EF 60%, mild to moderate MR, aortic sclerosis without stenosis, mild aortic regurgitation
Echo 01/01/2025: EF 60.5%, diastolic flattening of the interventricular septum consistent with RV volume overload, RV moderately dilated, RV systolic function mildly decreased, moderate to severe MR, mild with peak/mean gradients 20/11 mmHg,
moderate to severe AR, moderate to severe TR
Plan:
He initially presented with amaurosis fugax and found to have symptomatic L carotid lesion by CTA 12/31. Cardiology initially consulted for pre-op eval in the setting of acute heart failure.
He continued to have visual changes/TIAs during hospital stay requiring more emergent surgical intervention. He is status post carotid endarterectomy 01/02/2025. Overnight visual changes occurred and vascular is evaluating with CTA. Patient
currently is in good spirits without neurologic symptoms. He continues to have lower extremity edema and shortness of breath. Postop EKG stable. Independently reviewed by me
Heart failure with preserved left ventricular ejection fraction and valvular heart disease
-ProBNP elevated at 2730.
- He remains volume overloaded. Continue IV diuretic Lasix increased to 60 mg IV twice daily (he missed dose yesterday).
-Guideline directed therapy for heart failure with preserved ejection fraction. Eventually could consider addition of SGLT2 inhibitor versus spironolactone. Will have CM assess cost of SGLT2 inhibitor. Blood pressure currently on the low side
postop.
-Creatinine stable.
-Follow daily weights, I&O's. Follow weights
-Echo 01/01 showed preserved EF with evidence of volume overload. RV moderately dilated with moderate to severe MR, moderate to severe AR, and moderate to severe TR.
-With RV dilation and systolic function mildly decreased, could consider checking CTA of chest to evaluate for PE
Blood pressure
-On the low side follow-up.
Atrial fibrillation permanent
-He remains in rate controlled permanent atrial fibrillation by review of telemetry. On Eliquis 5 mg twice daily as outpatient, currently on heparin while awaiting okay to resume from vascular surgery perspective.
-Continues on metoprolol low-dose with parameters. Heart rate on the slow side today. Follow-up. Will hold off given plan for surgery.
Valvular heart disease
- As noted with moderate to severe mitral regurgitation and moderate to severe aortic valve insufficiency which is worse compared to prior echocardiogram. Reassess as outpatient once euvolemic.
Hyperlipidemia
-On fenofibrate as OP, LDL above goal at 80. New to rosuvastatin 20mg daily.
Neurologic symptoms and carotid disease
- Treatment per vascular and primary service
31 minutes total critical care time
HPI: Patient came to the ER yesterday with symptoms of amaurosis fugax and was admitted with symptomatic left carotid stenosis and cardiology is now consulted for preoperative cardiovascular risk stratification. By review of [facility] records the patient
called his PCP on 10/07/2024 to report a right-sided facial droop and was recommended go to the ER, but patient reports his symptoms improved and he did not seek ER care. Patient then saw his PCP on 10/30/2024 and was sent for MRI of the brain and
carotid U/S. Carotid U/S as noted above showed a less than 50% LICA stenosis and 50 to 69% on the right. Patient was then seen in the ER on 11/14/2024 with dizziness and he was concerned that he had increasing symptoms related to his previous TIA,
this prompted CT scan in the ER that did not show any evidence of a subacute stroke and patient was given a 5-day course of antibiotics for a right sided pleural effusion and cough. The patient then noticed amaurosis fugax symptoms 3 days ago and
saw his oven roaster yesterday and was found to have Hollenhorst plaques prompting referral to the ER. CTA of the neck indicated 75% L ICA lesion and 65% R ICA lesion prompting admission for symptomatic left carotid stenosis. Vascular surgery
scheduled to see the patient and make recommendations regarding revascularization. Cardiology consulted to see the patient for preoperative evaluation. Patient reports sleeping in a chair since September due to symptoms of orthopnea and chronic cough.
He had an ENT evaluation that was unremarkable and no improvement following antibiotic course given in the ER on 11/14/2024. CXR again shows a left-sided pleural effusion and his proBNP is 2730. Patient also reports increased LE edema and had
weeping wounds up until a week ago when his timber feller had him increase Lasix for 3 days, this helped the LE edema and also seemed to help his cough. Patient with known CAD s/p in 1996. No evidence of subsequent cath or PCI. Patient thinks his
last stress test was years ago. Patient also has known permanent A-fib and was taking Lopressor 50 mg BID prior to admission plus Eliquis 5 mg BID.
Progress Note - Vinegar Maker
Subjective
Date of Service: January 03, 2025
No further neurologic symptoms. Lower extremity edema and shortness of breath. No chest pain.
Objective
Labs:
01/03/25 03:36
01/03/25 03:36
Labs
Hgb 13.8 g/dL (13.0-18.0) 01/03/25 03:36
Hct 41.5 % (39.0-52.0) 01/03/25 03:36
Plt Count 187 10^3/uL (130-400) D 01/03/25 03:36
PT 15.6 Sec (11.4-14.6) H 01/03/25 03:36
INR 1.19 01/03/25 03:36
APTT 32.2 Sec (23.4-35.0) 01/03/25 03:36
Sodium 141 mmol/L (135-145) 01/03/25 03:36
Potassium 3.8 mmol/L (3.5-5.1) 01/03/25 03:36
BUN 20 mg/dl (9-20) 01/03/25 03:36
Creatinine 0.7 mg/dL (0.7-1.3) 01/03/25 03:36
Glucose 134 mg/dl (70-99) H 01/03/25 03:36
Vital Signs and I&O:
Vital Signs
Temp Pulse Resp BP Pulse Ox
97.6 F 73 20 114/44 91
01/03/25 07:35 01/03/25 09:45 01/03/25 09:45 01/03/25 09:06 01/03/25 09:30
Vital Signs
Temp Pulse Resp BP Pulse Ox
97.6 F 73 20 114/44 91
01/03/25 07:35 01/03/25 09:45 01/03/25 09:45 01/03/25 09:06 01/03/25 09:30
Intake & Output
01/01/25 01/02/25 01/03/25 01/04/25
06:59 06:59 06:59 06:59
Intake Total 1540 / 1620 160 / 160
Output Total 500 / 500
Balance 1040 / 1120 160 / 160
Physical Exam
Physical Exam
General: Well developed, well nourished in NAD.
Neck: Ecchymosis around left CEA scar stable
Heart: Distant heart sounds irregular 2/6 basal systolic murmur 3/6 murmur left sternal border
Lungs: Decreased breath sounds at the bases clear
Extremities: No clubbing, cyanosis +1-2 edema bilaterally.
Neuro: Grossly nonfocal, awake, alert
--- NOTE | 2025-01-03 10:56 | CON.INTV ---
Consultation
Consultation Request
Date/Time Consultation Requested: 01/03/2025
Date/Time Consultation Performed: 01/03/2025
Requesting Provider: Dr. Lopez
Performing Provider: Dr. Steven Appiah
Reason for Consultation: Status post left carotid endarterectomy
Medical History
-
History of Present Illness:
79-year-old man with past medical history significant for coronary artery disease, atrial fibrillation, MR, heart failure, COPD admitted on 12/31/2024. He presented from the outpatient office to the emergency room for evaluation of carotid stenosis.
Reports for the last several weeks having some eye vision problems.
Evaluated by ophthalmology and found Hollenhorst plaques and sent to the emergency room for further evaluation.
He remains on Eliquis for atrial fibrillation
About 6 weeks ago patient had TIA symptoms.
Carotid ultrasound on the right showed 50 to 69% internal carotid stenosis. 50% of stenosis on the left.
-
Patient was also found to be volume overloaded treated for heart failure with IV diuretics with improvement.
Subsequently taken to the operating room on 01/02/2025 and underwent left carotid endarterectomy.
This morning continues to complain of mild left vision disturbance that is started this morning. Denies any headache. Denies any muscle weakness.
Past Medical History
Past Medical History: Other (See assessment and plan)
Social History
Tobacco: Former Smoker (Quit in 1996)
Alcohol: None
Drug: None
Employment: Retired
Family History
Family History: Reviewed & Not Pertinent
Allergies / Home Medications
Allergies
Allergy/AdvReac Type Severity Reaction Status Date / Time
oxycodone (From Percocet) Allergy Nausea / Verified 12/31/24 19:52
Vomiting
Home Medications
�Medication �Instructions �Recorded �Confirmed �Last Taken �Type
finasteride 5 mg tablet 5 mg PO DAILY Urinary Issue 09/20/11 12/31/24 09/20/11 History
levothyroxine 200 mcg tablet 200 mcg PO DAILY Thyroid 09/20/11 12/31/24 09/20/11 History
metoprolol tartrate 50 mg tablet 25 mg PO BID Blood Pressure 09/20/11 01/02/25 09/20/11 History
omeprazole 40 mg capsule,delayed 20 mg PO DAILYPRN PRN GERD 09/20/11 01/02/25 09/13/11 History
release (Prilosec)
albuterol sulfate 90 mcg/actuation 1 puff inhalation R Q4HPRN PRN 06/25/18 12/31/24 Unknown Rx
aerosol inhaler cough,wheezing,short of breath ##1
apixaban 5 mg tablet (Eliquis) 5 mg PO BID Blood Clot 12/31/24 12/31/24 Unknown History
Prevention/Tx
fluticasone propionate 50 2 spray intranasal BID Allergies 12/31/24 12/31/24 Unknown History
mcg/actuation nasal
spray,suspension
fenofibrate 54 mg tablet 54 mg PO DAILY High Cholesterol 01/02/25 01/02/25 Unknown History
fluoxetine 20 mg tablet 20 mg PO DAILY Mental 01/02/25 01/02/25 Unknown History
Health/Anxiety
furosemide 20 mg tablet 20 mg PO DAILY@1600 Fluid 01/02/25 01/02/25 Unknown History
Retention/Swelling
furosemide 40 mg tablet 40 mg PO DAILY Fluid 01/02/25 01/02/25 Unknown History
Retention/Swelling
lorazepam 1 mg tablet 1 mg PO BID PRN anxiety 01/02/25 01/02/25 Unknown History
pravastatin 40 mg tablet 20 mg PO HS High Cholesterol 01/02/25 01/02/25 Unknown History
timolol maleate 0.5 % eye drops 1 drp LEFT EYE BID Eye Condition 01/02/25 01/02/25 Unknown History
Review of Systems
-
History Source: Patient
All other systems: Negative unless noted
Vitals / Labs / Diagnostic Testing
Vital Signs
Temp Pulse Resp BP Pulse Ox
97.6 F 69 15 110/47 91
01/03/25 07:35 01/03/25 10:45 01/03/25 10:45 01/03/25 10:00 01/03/25 09:30
Lab Data
01/03/25 03:36
01/03/25 03:36
Laboratory Results
01/02/25 01/03/25
16:40 03:36
PT 16.2 H 15.6 H
INR 1.25 1.19
APTT 32.2
Diagnostic Testing:
Physical Exam
-
HEENT: Normocephalic and Other (Left cervical incision intact without hematoma.)
Cardiovascular: Irregular Rhythm and Murmur
Respiratory: Clear, Wheeze (n) and Non-Labored Respirations
GI: Soft and Non Distended
Neurology: Awake and Alert
Skin: Warm
General: Comfortable
Assessment
-
79-year-old man with past medical history noted. Came with symptomatic left-sided carotic artery stenosis. Sent from the ophthalmology as they found Hollenhorst bodies. Found to be volume overloaded as well. After diuresis. Patient evaluated by
vascular surgery and neurology. Recommended revascularization. Underwent carotid endarterectomy 01/02/2025
Symptomatic bilateral carotid artery stenosis
Left visual problems-found Hollenhorst bodies by ophthalmology-sent to the emergency room for eval
TIA symptoms with right-sided facial droop 10/07/24
Status post left carotic endarterectomy 01/02/2025
Patient compliant with with anticoagulation for atrial fibrillation
Acute on chronic heart failure with preserved ejection fraction
Echocardiogram 01/01/2025: LVEF 60%. Diastolic flattening of the interventricular septum consistent with right ventricular volume overload. Moderate dilation of the right ventricle. Mild aortic stenosis. Moderate to severe AR. Moderate to severe
MR. Moderate to severe TR. Pulmonary artery pressure 40 mmHg
proBNP 2730
Chest x-ray 01/01/2025: Small right pleural effusion with associated atelectasis.
Chronic right pleural effusion present since at least 2017-based on prior imaging
Conditions present prior admission:
Atrial fibrillation permanent
Heart failure
Obstructive sleep apnea on CPAP
History of CABG in 1996
History of thymectomy
Prior granulomatous disease based on CAT scan from 2017
? COPD
Bilateral cataract extraction
Assessment and plan:
Status post carotid endarterectomy 01/02/2025
Incision is intact
No hematoma
Continues to report left visual changes intermittently
Denies any headache
Repeat CT angiogram head and neck negative for acute abnormalities 01/03/2025
Continue with neurological checks
Vascular surgery continues to follow
-
Heart failure with preserved ejection fraction/valvulopathy acute on chronic
Clinically improved post diuresis
IV Lasix 60 mg IV every 12 per cardiology and primary team.
Monitor electrolytes and renal function closely.
Not on oxygen therapy
Comfortable sitting out of bed
Ambulated to the restroom without much symptoms
On chest x-ray-has chronic right pleural effusion since 2017 based on prior imaging
No indication for thoracentesis
Continue cardiac management
-
Cardiology continues to follow
Prior history of coronary artery disease with distant CABG in 1995
Eventual ischemic evaluation per cardiology.
-
Permanent atrial fibrillation: Eventually resume anticoagulation when okay with cardiology and vascular
-
Continue antihypertensive
-
? COPD-no PFT available. Not bronchospastic
Usually not on long-acting bronchodilators.
Quit smoking in the
-
Obstructive sleep apnea-does not use any CPAP.
-
Continue ICU monitoring for now until cleared by vascular. Continues to have left-sided visual problems
--No motor deficit.
Otherwise hemodynamically stable.
-
--- NOTE | 2025-01-03 11:43 | CM ---
Jardiance 10mg daily is $146.96 per month
Farxiga 10mg daily is $140.03 per month
--- NOTE | 2025-01-03 12:07 | PTCARENOTE ---
Pt assessed.No change in assessment noted.
[2025-01-03] MEDS: KCL 20 MEQ PO (12:13)
--- NOTE | 2025-01-03 13:51 | CM ---
POD #1, L endarterectomy. Discharge POC: TBD. Awaiting therapy evaluation.
--- NOTE | 2025-01-03 15:05 | W.PN.UPDATE ---
Update Note
Progress Note Update
Remains hemodynamically stable
No new neurological symptoms
Continues to have intermittent left visual symptoms otherwise ambulatory.
Will transfer to telemetry
Rest of evaluation per primary team
Signed off
[2025-01-03] MEDS: TYLENOL 650 MG PO ×2 (16:35→23:46)
[2025-01-03] MEDS: CRESTOR 20 MG PO (16:37)
--- NOTE | 2025-01-03 16:48 | PTCARENOTE ---
Pt assessed.No change in assessment noted.
[2025-01-03] MEDS: ELIQUIS 5 MG PO (19:48)
[2025-01-03] MEDS: LOPRESSOR 12.5 MG PO (19:48)
--- NOTE | 2025-01-03 19:58 | PTCARENOTE ---
Handoff report received from off going RN. Patient received OOB to chair awake and watching TV. Neuro assessment as documented. Symmetrical smile and tongue is midline. Left neck incision is cdi with surgical adhesive. NIHSS 0. Patient assisted to
the bathroom. Gait is steady. AAOx4 and able to make his needs known. Plan of care for the shift reviewed with the patient. Afib on the monitor. +2 bilateral lower extremities edema. Crackles with lungs auscultation. Pt's with occasional
nonproductive cough. Pt brushed his teeth. Back to chair. All needs are met at this time. Call brown and personal belongings are within reach.
[2025-01-04] VITALS (14 sets, daily range): BP systolic 119–156; BP diastolic 45–89; PULSE 59; BMI 29.0
--- NOTE | 2025-01-04 00:59 | PTCARENOTE ---
Patient reassessed. Neuro check assessment as noted. Patient assisted to the bed. Tylenol for pain.
[2025-01-04 04:12] LABS: Hematocrit 43.9 % (39.0-52.0); Hemoglobin 14.4 g/dL (13.0-18.0); Mean Corp Hgb Conc. 32.8 g/dL (33.0-37.0); Mean Corpuscular Volume 92.6 fL (80.0-94.0); Platelet Count 263 10^3/uL (130-400); Red Cell Dist. Width 16.0 % (11.5-14.5)
[2025-01-04 04:24] LABS: Blood Urea Nitrogen 39 mg/dl (9-20); Calcium 9.6 mg/dl (8.4-10.2); Carbon Dioxide 31 mmol/L (22-30); Chloride 101 mmol/L (98-107); Estimated Creatinine Clearance 58 ml/min; Glucose 121 mg/dl (70-99); Potassium 4.3 mmol/L (3.5-5.1); Sodium 139 mmol/L (135-145); eGFR > 60.00
--- NOTE | 2025-01-04 04:26 | PTCARENOTE ---
Patient reassessed. Awake and oriented. Patient has concerns regarding having a bowel movement. Pt's passing flatus. All needs are met. no other changes.
[2025-01-04] MEDS: SYNTHROID 200 MCG PO (06:06)
--- NOTE | 2025-01-04 07:34 | W.PN.HOSP.TC ---
Addendum entered and electronically signed by David Lopez DO 01/04/25 14:55:
Updated patient's on the phone. All questions answered.
Original Note:
Today's Communication/Plan
-
Continue current care
Assessment / Plan
Assessment / Plan
Gen-AAOx3, NAD
HEENT-NC, AT, anicteric, clear oral mm
Neck-supple, left neck surgical scar intact
CV-reg, no M, +S1/S2
Lungs-clear B/L
Abd-soft, NT, ND
Ext-bilateral ankle edema
Musculoskeletal-no cyanosis, clubbing
Skin-warm and dry
Neuro-grossly non-focal
Psych-calm, cooperative
Acute left hemispheric strokes -noted on brain MRI involving the left frontal region including the left anterior insula. This corresponds with the left-sided carotid stenosis. Left-sided transient vision loss.
Symptomatic left carotid stenosis -2 episodes of transient left monocular vision loss (amaurosis fugax) primarily involving the right upper quadrant of the left eye. Symptoms recurred 01/02. Noted to have Hollenhorst plaques on retinal exam by
electric system operator, referred to the emergency room for admission. Has persistent left eye upper inner quadrant vision loss.
CTA of head and neck noted, 75% stenosis of the left ICA. 65% right sided.
MRA of neck showed 64% bulb/proximal ICA stenosis.
Underwent successful left carotid endarterectomy 01/02. Repeat CTA head and neck without acute abnormalities. Patent left MCA.
Acute heart failure with preserved EF exacerbation -BNP elevated. Getting IV Lasix. Cardiology following. Feels somewhat better in terms of shortness of breath. Weight has plateaued at 89 kg. Unclear how reliable.
Echocardiogram shows LVEF of 60% with valvular heart disease. Moderate to severe AR, moderate to severe MR, moderate to severe TR. RV volume overload.
CAD -with four-vessel CABG 1995. Denies exertional chest pain or pressure. Does have occasional exertional shortness of breath.
He states he sees a medical lead in [place], Dr. Gutiérrez.
Nuclear stress test done in [facility] March 2021 was negative for ischemia.
Ischemic workup per cardiology.
Permanent atrial fibrillation - Eliquis resumed, 01/03.
Essential hypertension -stable.
COPD without exacerbation
Hyperlipidemia -continue Crestor.
STUART -noncompliant with home CPAP.
Hypothyroidism -levothyroxine. TSH 6.5, free T4 2.1.
IBS
Obesity due to excess calories
Full code
Dispo -discharge when cleared by cardiology. Cleared by PT/OT.
Anticipated Discharge: Within 24 hours
Subjective/Interval History
-
Date of Service: January 04, 2025
Patient seen and examined. No new complaints. Still has left eye visual field cut right inner upper quadrant.
Objective Data
-
Labs:
Laboratory Results
01/04/25
03:55
WBC 10.9 H
Hgb 14.4
Hct 43.9
Plt Count 263 D
Sodium 139
Potassium 4.3
Chloride 101
Carbon Dioxide 31 H
BUN 39 H
Creatinine 1.0
Glucose 121 H
Calcium 9.6
Vital Signs:
Vital Signs
Temp Pulse Resp BP Pulse Ox
97.4 F 55 15 119/83 91
01/04/25 07:23 01/04/25 04:15 01/04/25 04:15 01/04/25 04:00 01/04/25 03:45
I&O
01/03/25 01/04/25 01/05/25
06:59 06:59 06:59
Intake Total 1540 / 1620 770 / 770
Output Total 500 / 500
Balance 1040 / 1120 770 / 770
Review of Systems
-
History Source: Patient
All other systems: Reviewed and negative
[2025-01-04] MEDS: TRICOR 48 MG PO (08:25)
[2025-01-04] MEDS: TIMOPTIC 0.5% OPHTHALMIC SOLUTION 1 DROP LEFT EYE ×2 (08:25→20:47)
[2025-01-04] MEDS: DESENEX/MITRAZOL/ZEASORB 1 APPLIC TOPICAL ×2 (08:25→20:48)
[2025-01-04] MEDS: LOPRESSOR 12.5 MG PO ×2 (08:25→20:47)
[2025-01-04] MEDS: PEPCID 20 MG PO (08:26)
[2025-01-04] MEDS: LASIX 60 MG IV ×2 (08:26→16:05)
[2025-01-04] MEDS: SENOKOT-S 1 TABLET PO (08:26)
[2025-01-04] MEDS: ELIQUIS 5 MG PO ×2 (08:26→20:47)
[2025-01-04] MEDS: PROSCAR 5 MG PO (08:26)
[2025-01-04] MEDS: PROZAC 20 MG PO (08:27)
[2025-01-04] MEDS: MIRALAX 17 GRAMS PO (08:27)
--- NOTE | 2025-01-04 10:35 | PTCARENOTE ---
pt awake and alert , Afib on monitor , NIHSS 1 , tolerating diet , L neck incision with adonis and ecchymosis no hematoma , ambulating to bathroom without difficulty , pt is now telemetry status
[2025-01-04] MEDS: TYLENOL 650 MG PO ×3 (11:59→20:48)
[2025-01-04] MEDS: LASIX 20 MG IV (12:00)
--- NOTE | 2025-01-04 12:11 | W.PN.CARDCBS ---
Today's Communication / Plan
-
Give 1 extra dose 20 mg of IV Lasix
Increase activity as tolerates
Add low-dose Aldactone 12.5 mg daily. Check BMP, proBNP in 1 week.
Continue risk factor modification
Likely ready for discharge tomorrow
Impression / Plan
-
PCP: Dr. Boyce
Cardiology: Dr. Marianne Gutiérrez at [facility] and Dr. Pace locally
Impression:
Status post left carotid endarterectomy 01/02/2025
Admitted with amaurosis fugax and symptomatic left carotid lesion 12/31/2024
Carotid disease, 75% L ICA and 65% R ICA disease by CTA neck 12/31/2024
Less than 50% LICA and 50 to 69% R ICA stenoses by carotid U/S 12/31/24
TIA symptoms with right-sided facial droop 10/07/24
Acute HFpEF
Mod-severe MR by echo 01/01/2025
RV dilation by echo 01/01/2025
Permanent A-fib
Bradycardia
Chronic Eliquis OAC
CAD
s/p CABG 1996
HTN
Hyperlipidemia
STUART
Echo 06/15/2023: EF 60%, mild to moderate MR, aortic sclerosis without stenosis, mild aortic regurgitation
Echo 01/01/2025: EF 60.5%, diastolic flattening of the interventricular septum consistent with RV volume overload, RV moderately dilated, RV systolic function mildly decreased, moderate to severe MR, mild with peak/mean gradients 20/11 mmHg,
moderate to severe AR, moderate to severe TR
Plan:
He initially presented with amaurosis fugax and found to have symptomatic L carotid lesion by CTA 12/31. Cardiology initially consulted for pre-op eval in the setting of acute heart failure.
He continued to have visual changes/TIAs during hospital stay requiring more emergent surgical intervention. He is status post carotid endarterectomy 01/02/2025. He then had visual changes once again and underwent CTA, stable. No recurrent
symptoms.
He has heart failure with preserved ejection fraction. He continues to have lower extremity edema with improved shortness of breath. His weight has decreased. Telemetry independently reviewed by me remains stable. Oxygenation is stable.
Heart failure with preserved left ventricular ejection fraction and valvular heart disease
-ProBNP elevated at 2730.
- He remains somewhat volume overloaded likely with chronic lower extremity edema that is multifactorial. Continue IV diuretic Lasix 60 mg IV twice daily and will give extra 20 mg of IV now. Kidney function remained stable. I suspect he will be
ready for discharge from a cardiac point of view tomorrow.
-Guideline directed therapy for heart failure with preserved ejection fraction. Eventually could consider addition of SGLT2 inhibitor . Cost of SGLT2 inhibitor seems to be expensive we will reassess as an outpatient. Blood pressure currently
stable. Will add low-dose Aldactone. Will need labs in 1 week to check potassium and renal function. Would also check proBNP at that time.
-Follow daily weights, I&O's. Follow weights
-Echo 01/01 showed preserved EF with evidence of volume overload. RV moderately dilated with moderate to severe MR, moderate to severe AR, and moderate to severe TR. Will reassess echocardiogram as an outpatient
Blood pressure
- Stable. Follow.
Atrial fibrillation permanent
-He remains in rate controlled permanent atrial fibrillation by review of telemetry. On Eliquis 5 mg twice daily which was resumed.
-Continues on metoprolol low-dose. Heart rate improved. Bradycardia noted post procedure.
Valvular heart disease
- As noted with moderate to severe mitral regurgitation and moderate to severe aortic valve insufficiency which is worse compared to prior echocardiogram. Reassess echo as outpatient once euvolemic.
Hyperlipidemia
-On fenofibrate as OP, LDL above goal at 80. New to rosuvastatin 20mg daily. Reassess labs in 3 months.
Neurologic symptoms and carotid disease
- Treatment per vascular and primary service
HPI: Patient came to the ER yesterday with symptoms of amaurosis fugax and was admitted with symptomatic left carotid stenosis and cardiology is now consulted for preoperative cardiovascular risk stratification. By review of [facility] records the patient
called his PCP on 10/07/2024 to report a right-sided facial droop and was recommended go to the ER, but patient reports his symptoms improved and he did not seek ER care. Patient then saw his PCP on 10/30/2024 and was sent for MRI of the brain and
carotid U/S. Carotid U/S as noted above showed a less than 50% LICA stenosis and 50 to 69% on the right. Patient was then seen in the ER on 11/14/2024 with dizziness and he was concerned that he had increasing symptoms related to his previous TIA,
this prompted CT scan in the ER that did not show any evidence of a subacute stroke and patient was given a 5-day course of antibiotics for a right sided pleural effusion and cough. The patient then noticed amaurosis fugax symptoms 3 days ago and
saw his supervisor telephone clerks yesterday and was found to have Hollenhorst plaques prompting referral to the ER. CTA of the neck indicated 75% L ICA lesion and 65% R ICA lesion prompting admission for symptomatic left carotid stenosis. Vascular surgery
scheduled to see the patient and make recommendations regarding revascularization. Cardiology consulted to see the patient for preoperative evaluation. Patient reports sleeping in a chair since September due to symptoms of orthopnea and chronic cough.
He had an ENT evaluation that was unremarkable and no improvement following antibiotic course given in the ER on 11/14/2024. CXR again shows a left-sided pleural effusion and his proBNP is 2730. Patient also reports increased LE edema and had
weeping wounds up until a week ago when his operational meteorologist had him increase Lasix for 3 days, this helped the LE edema and also seemed to help his cough. Patient with known CAD s/p in 1996. No evidence of subsequent cath or PCI. Patient thinks his
last stress test was years ago. Patient also has known permanent A-fib and was taking Lopressor 50 mg BID prior to admission plus Eliquis 5 mg BID.
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
Subjective
Date of Service: January 04, 2025
He feels that his legs are almost at what he considers baseline. He is breathing has improved overall and he tells me he walked with physical therapy. He denies chest pain.
Objective
Labs:
01/04/25 03:55
01/04/25 03:55
Labs
Hgb 14.4 g/dL (13.0-18.0) 01/04/25 03:55
Hct 43.9 % (39.0-52.0) 01/04/25 03:55
Plt Count 263 10^3/uL (130-400) D 01/04/25 03:55
PT 15.6 Sec (11.4-14.6) H 01/03/25 03:36
INR 1.19 01/03/25 03:36
APTT 32.2 Sec (23.4-35.0) 01/03/25 03:36
Sodium 139 mmol/L (135-145) 01/04/25 03:55
Potassium 4.3 mmol/L (3.5-5.1) 01/04/25 03:55
BUN 39 mg/dl (9-20) H 01/04/25 03:55
Creatinine 1.0 mg/dL (0.7-1.3) 01/04/25 03:55
Glucose 121 mg/dl (70-99) H 01/04/25 03:55
Vital Signs and I&O:
Vital Signs
Temp Pulse Resp BP Pulse Ox
97.5 F 61 17 122/51 91
01/04/25 11:04 01/04/25 12:00 01/04/25 08:15 01/04/25 12:00 01/04/25 03:45
Vital Signs
Temp Pulse Resp BP Pulse Ox
97.5 F 61 17 122/51 91
01/04/25 11:04 01/04/25 12:00 01/04/25 08:15 01/04/25 12:00 01/04/25 03:45
Intake & Output
01/02/25 01/03/25 01/04/25 01/05/25
06:59 06:59 06:59 06:59
Intake Total 1540 / 1620 770 / 770 250 / 250
Output Total 500 / 500
Balance 1040 / 1120 770 / 770 250 / 250
Physical Exam
Physical Exam
General: Well developed, well nourished in NAD.
Heart: Irregularly irregular with 3/6 systolic murmur left sternal border and 3/6 apical holosystolic murmur
Lungs: Decreased at the bases
Extremities: No clubbing, cyanosis +1 bilaterally left greater than right
Neuro: Grossly nonfocal, awake, alert
--- NOTE | 2025-01-04 15:33 | PTCARENOTE ---
pt to transfer to room 2105 , report given to receiving RN , at bedside and updated on plan of care and condition
--- NOTE | 2025-01-04 15:34 | CM ---
I met with pt and at bedside to discuss VN referral. No history VN in past, would like to use [facility]. Referral sent. Pt expecting to be discharged home tomorrow, he and aware it may be a couple of days before they hear from VN.
[2025-01-04] MEDS: CRESTOR 20 MG PO (17:51)
[2025-01-05] MEDS: TYLENOL 650 MG PO ×2 (02:26→09:49)
[2025-01-05] MEDS: OCEAN, SALINE MIST 1 SPRAYS NASAL (02:27)
[2025-01-05 03:00] VITALS: BP 114/58
[2025-01-05 05:20] LABS: Hematocrit 42.4 % (39.0-52.0); Hemoglobin 13.9 g/dL (13.0-18.0); Mean Corp Hgb Conc. 32.8 g/dL (33.0-37.0); Mean Corpuscular Volume 92.0 fL (80.0-94.0); Platelet Count 239 10^3/uL (130-400); Red Cell Dist. Width 15.9 % (11.5-14.5)
[2025-01-05 05:42] LABS: Blood Urea Nitrogen 36 mg/dl (9-20); Calcium 8.9 mg/dl (8.4-10.2); Carbon Dioxide 35 mmol/L (22-30); Chloride 102 mmol/L (98-107); Estimated Creatinine Clearance 64 ml/min; Glucose 105 mg/dl (70-99); Potassium 3.7 mmol/L (3.5-5.1); Sodium 140 mmol/L (135-145); eGFR > 60.00
[2025-01-05 06:26] LABS: Absolute Neutrophils -Man Diff 6.3 10^3/uL (1.4-6.5); Anisocytosis 1+; Normal RBC Morphology No; Platelets Checked Yes; Total Cells Counted 100
[2025-01-05] MEDS: SYNTHROID 200 MCG PO (06:40)
[2025-01-05] MEDS: MIRALAX PO (07:03)
[2025-01-05 07:40] VITALS: BP 136/66
[2025-01-05] MEDS: PEPCID 20 MG PO (08:27)
[2025-01-05] MEDS: PROSCAR 5 MG PO (08:27)
[2025-01-05] MEDS: ELIQUIS 5 MG PO (08:27)
[2025-01-05] MEDS: LOPRESSOR 12.5 MG PO (08:27)
[2025-01-05] MEDS: TRICOR 48 MG PO (08:27)
[2025-01-05] MEDS: ALDACTONE 12.5 MG PO (08:27)
[2025-01-05] MEDS: PROZAC 20 MG PO (08:27)
[2025-01-05] MEDS: TIMOPTIC 0.5% OPHTHALMIC SOLUTION 1 DROP LEFT EYE (08:28)
[2025-01-05] MEDS: LASIX 60 MG IV (08:28)
[2025-01-05 09:29] VITALS: BP 136/61; BP 143/67; PULSE 68; O2SAT 98
[2025-01-05] MEDS: DESENEX/MITRAZOL/ZEASORB TOPICAL (09:48)
--- NOTE | 2025-01-05 09:59 | W.PN.HOSP.TC ---
Today's Communication/Plan
-
Possible discharge
Assessment / Plan
Assessment / Plan
Gen-AAOx3, NAD
HEENT-NC, AT, anicteric, clear oral mm
Neck-supple, left neck surgical scar intact
CV-reg, no M, +S1/S2
Lungs-clear B/L
Abd-soft, NT, ND
Ext-bilateral ankle edema
Musculoskeletal-no cyanosis, clubbing
Skin-warm and dry
Neuro-grossly non-focal
Psych-calm, cooperative
Acute left hemispheric strokes -noted on brain MRI involving the left frontal region including the left anterior insula. This corresponds with the left-sided carotid stenosis. Left-sided transient vision loss.
Symptomatic left carotid stenosis -2 episodes of transient left monocular vision loss (amaurosis fugax) primarily involving the right upper quadrant of the left eye. Symptoms recurred 01/02. Noted to have Hollenhorst plaques on retinal exam by
scout, referred to the emergency room for admission. Has persistent left eye upper inner quadrant vision loss.
CTA of head and neck noted, 75% stenosis of the left ICA. 65% right sided.
MRA of neck showed 64% bulb/proximal ICA stenosis.
Underwent successful left carotid endarterectomy 01/02. Repeat CTA head and neck without acute abnormalities. Patent left MCA.
Acute heart failure with preserved EF exacerbation -BNP elevated. Getting IV Lasix. Cardiology following. Feels better in terms of shortness of breath. Weight to be checked today. Discussed with nursing.
Echocardiogram shows LVEF of 60% with valvular heart disease. Moderate to severe AR, moderate to severe MR, moderate to severe TR. RV volume overload.
CAD -with four-vessel CABG 1995. Denies exertional chest pain or pressure. Does have occasional exertional shortness of breath.
He states he sees a dispatcher automobile rental in [place], Dr. Gutiérrez.
Nuclear stress test done in [facility] March 2021 was negative for ischemia.
Permanent atrial fibrillation - Eliquis resumed, 01/03.
Essential hypertension -stable.
COPD without exacerbation
Hyperlipidemia -continue Crestor.
STUART -noncompliant with home CPAP.
Hypothyroidism -levothyroxine. TSH 6.5, free T4 2.1.
IBS
Obesity due to excess calories
Full code
Dispo -anticipate discharge home today if okay with cardiology, vascular surgery. Outpatient follow-up.
Anticipated Discharge: Today
Subjective/Interval History
-
Date of Service: January 05, 2025
Patient seen and examined, no complaints. Eager to go home.
Objective Data
-
Labs:
Laboratory Results
01/05/25
04:56
WBC 8.4
Hgb 13.9
Hct 42.4
Plt Count 239
Sodium 140
Potassium 3.7
Chloride 102
Carbon Dioxide 35 H
BUN 36 H
Creatinine 0.9
Glucose 105 H
Calcium 8.9
Vital Signs:
Vital Signs
Temp Pulse Resp BP Pulse Ox
97.4 F 66 16 136/66 95
01/05/25 07:40 01/05/25 08:28 01/05/25 07:40 01/05/25 08:28 01/05/25 08:45
I&O
01/04/25 01/05/25 01/06/25
06:59 06:59 06:59
Intake Total 770 / 770 490 / 490 1080 / 1080
Balance 770 / 770 490 / 490 1080 / 1080
Review of Systems
-
History Source: Patient
All other systems: Reviewed and negative
[2025-01-05 10:00] VITALS: BMI 27.9
[2025-01-05 11:05] VITALS: BP 123/55
--- NOTE | 2025-01-05 11:55 | W.PN.CARDCBS ---
Today's Communication / Plan
-
ok for dc
f/u with cardiology, office to call
labs at in 1 week
Impression / Plan
-
PCP: Dr. Boyce
Cardiology: Dr. Marianne Gutiérrez at [facility] and Dr. Pace locally
Impression:
Status post left carotid endarterectomy 01/02/2025
Admitted with amaurosis fugax and symptomatic left carotid lesion 12/31/2024
Carotid disease, 75% L ICA and 65% R ICA disease by CTA neck 12/31/2024
Less than 50% LICA and 50 to 69% R ICA stenoses by carotid U/S 12/31/24
TIA symptoms with right-sided facial droop 10/07/24
Acute HFpEF
Mod-severe MR by echo 01/01/2025
RV dilation by echo 01/01/2025
Permanent A-fib
Bradycardia
Chronic Eliquis OAC
CAD
s/p CABG 1996
HTN
Hyperlipidemia
STUART
Echo 06/15/2023: EF 60%, mild to moderate MR, aortic sclerosis without stenosis, mild aortic regurgitation
Echo 01/01/2025: EF 60.5%, diastolic flattening of the interventricular septum consistent with RV volume overload, RV moderately dilated, RV systolic function mildly decreased, moderate to severe MR, mild with peak/mean gradients 20/11 mmHg,
moderate to severe AR, moderate to severe TR
Plan:
He initially presented with amaurosis fugax and found to have symptomatic L carotid lesion by CTA 12/31. Cardiology initially consulted for pre-op eval in the setting of acute heart failure.
He continued to have visual changes/TIAs during hospital stay requiring more emergent surgical intervention. He is status post carotid endarterectomy 01/02/2025. He then had visual changes once again and underwent CTA, stable. No recurrent
symptoms.
He has heart failure with preserved ejection fraction. He has decreased weight and he feels baseline lower extremity edema with improved shortness of breath. Telemetry independently reviewed by me remains stable. Oxygenation is stable.
Heart failure with preserved left ventricular ejection fraction and valvular heart disease
-ProBNP elevated prior at 2730.
- Change Lasix 60 mg IV twice daily to 60mg po BID. Kidney function remained stable.
-Guideline directed therapy for heart failure with preserved ejection fraction. Eventually could consider addition of SGLT2 inhibitor, currently cost prohibitive. We will reassess as an outpatient. Blood pressure currently stable.
I did add on 01/04/25 low-dose Aldactone. Will need labs in 1 week to check potassium and renal function. Would also check proBNP at that time. I sent electronic slips to lab and rufus patient and nursing and documented on DC instruction.
-Follow daily weights, I&O's. Follow weights. Call if gain 3#, rufus patient.
-Echo 01/01 showed preserved EF with evidence of volume overload. RV moderately dilated with moderate to severe MR, moderate to severe AR, and moderate to severe TR. Will reassess echocardiogram as an outpatient
Blood pressure
- Stable. Follow.
Atrial fibrillation permanent
-He remains in rate controlled permanent atrial fibrillation by review of telemetry. On Eliquis 5 mg twice daily which was resumed.
-Continues on metoprolol low-dose. Heart rate improved. Bradycardia noted post procedure.
Valvular heart disease
- As noted with moderate to severe mitral regurgitation and moderate to severe aortic valve insufficiency which is worse compared to prior echocardiogram. Reassess echo as outpatient once euvolemic.
Hyperlipidemia
-On fenofibrate as OP, LDL above goal at 80. New to rosuvastatin 20mg daily. Reassess labs in 3 months.
Neurologic symptoms and carotid disease
- Treatment per vascular and primary service
Stable for dc home. Discussed with hospitalist service.
HPI: Patient came to the ER yesterday with symptoms of amaurosis fugax and was admitted with symptomatic left carotid stenosis and cardiology is now consulted for preoperative cardiovascular risk stratification. By review of [facility] records the patient
called his PCP on 10/07/2024 to report a right-sided facial droop and was recommended go to the ER, but patient reports his symptoms improved and he did not seek ER care. Patient then saw his PCP on 10/30/2024 and was sent for MRI of the brain and
carotid U/S. Carotid U/S as noted above showed a less than 50% LICA stenosis and 50 to 69% on the right. Patient was then seen in the ER on 11/14/2024 with dizziness and he was concerned that he had increasing symptoms related to his previous TIA,
this prompted CT scan in the ER that did not show any evidence of a subacute stroke and patient was given a 5-day course of antibiotics for a right sided pleural effusion and cough. The patient then noticed amaurosis fugax symptoms 3 days ago and
saw his quality assurance qa lab analyst yesterday and was found to have Hollenhorst plaques prompting referral to the ER. CTA of the neck indicated 75% L ICA lesion and 65% R ICA lesion prompting admission for symptomatic left carotid stenosis. Vascular surgery
scheduled to see the patient and make recommendations regarding revascularization. Cardiology consulted to see the patient for preoperative evaluation. Patient reports sleeping in a chair since September due to symptoms of orthopnea and chronic cough.
He had an ENT evaluation that was unremarkable and no improvement following antibiotic course given in the ER on 11/14/2024. CXR again shows a left-sided pleural effusion and his proBNP is 2730. Patient also reports increased LE edema and had
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 Patient with known CAD s/p in 1996. No evidence of subsequent cath or PCI. Patient thinks his
last stress test was years ago. Patient also has known permanent A-fib and was taking Lopressor 50 mg BID prior to admission plus Eliquis 5 mg BID.
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
Subjective
Date of Service: January 05, 2025
He denies chest pain. Edema stable.
Objective
Labs:
01/05/25 04:56
01/05/25 04:56
Labs
Hgb 13.9 g/dL (13.0-18.0) 01/05/25 04:56
Hct 42.4 % (39.0-52.0) 01/05/25 04:56
Plt Count 239 10^3/uL (130-400) 01/05/25 04:56
PT 15.6 Sec (11.4-14.6) H 01/03/25 03:36
INR 1.19 01/03/25 03:36
APTT 32.2 Sec (23.4-35.0) 01/03/25 03:36
Sodium 140 mmol/L (135-145) 01/05/25 04:56
Potassium 3.7 mmol/L (3.5-5.1) 01/05/25 04:56
BUN 36 mg/dl (9-20) H 01/05/25 04:56
Creatinine 0.9 mg/dL (0.7-1.3) 01/05/25 04:56
Glucose 105 mg/dl (70-99) H 01/05/25 04:56
Vital Signs and I&O:
Vital Signs
Temp Pulse Resp BP Pulse Ox
97.4 F 66 16 136/66 95
01/05/25 07:40 01/05/25 08:28 01/05/25 07:40 01/05/25 08:28 01/05/25 09:54
Vital Signs
Temp Pulse Resp BP Pulse Ox
97.4 F 66 16 136/66 95
01/05/25 07:40 01/05/25 08:28 01/05/25 07:40 01/05/25 08:28 01/05/25 09:54
Intake & Output
01/03/25 01/04/25 01/05/25 01/06/25
06:59 06:59 06:59 06:59
Intake Total 1540 / 1620 770 / 770 490 / 490 1080 / 1080
Output Total 500 / 500
Balance 1040 / 1120 770 / 770 490 / 490 1080 / 1080
Physical Exam
Physical Exam
General: Well developed, well nourished in NAD.
Heart: irreg irreg, 3/6 ahsm, 3/6 bsem, No S3, S4, no rubs.
Lungs: decreased at baseline
Extremities: No clubbing, cyanosis trace -+1 edema l(SVG donor) >rt edema bilaterally.
Neuro: Grossly nonfocal, awake, alert and oriented x3.
--- NOTE | 2025-01-05 12:06 | W.DS.TRANS ---
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
-
Discharge Instructions:
Discharge Diagnosis/Procedures Acute stroke, left carotid stenosis, acute heart
failure exacerbation, left carotid
endarterectomy
Diet 2 Gram Sodium,Restrict fluids to 48 oz,Low
Cholesterol,Low Fat
Activity No strenuous activity,As tolerated
Driving Restrictions Not until seen by your Dr
Bathing Restrictions OK to Shower
Blood Work BMP, proBNP
Other Services VN
Specialty Instructions Weigh Daily
Instructions:
Stand-Alone Forms: Vascular Surg Discharge Instr
Changes to Home Medications: No
Discharge Medications:
DC Medications w/original date entered in [employer]
finasteride 5 mg tablet 5 mg PO DAILY Urinary Issue 09/20/11
levothyroxine 200 mcg tablet 200 mcg PO DAILY Thyroid 09/20/11
omeprazole 40 mg capsule,delayed release (Prilosec) 20 mg PO DAILYPRN PRN GERD 09/20/11
albuterol sulfate 90 mcg/actuation aerosol inhaler 1 puff inhalation R Q4HPRN PRN cough,wheezing,short of breath ##1 06/25/18
apixaban 5 mg tablet (Eliquis) 5 mg PO BID Blood Clot Prevention/Tx 12/31/24
fluticasone propionate 50 mcg/actuation nasal spray,suspension 2 spray intranasal BID Allergies 12/31/24
fenofibrate 54 mg tablet 54 mg PO DAILY High Cholesterol 01/02/25
fluoxetine 20 mg tablet 20 mg PO DAILY Mental Health/Anxiety 01/02/25
lorazepam 1 mg tablet 1 mg PO BID PRN anxiety 01/02/25
timolol maleate 0.5 % eye drops 1 drp LEFT EYE BID Eye Condition 01/02/25
furosemide 20 mg tablet 60 mg (3 x 20 mg) PO BID AT 0800,1600 #180 tabs 01/05/25
metoprolol tartrate 25 mg tablet 12.5 mg (1/2 x 25 mg) PO BID #60 tabs 01/05/25
polyethylene glycol 3350 17 gram oral powder packet 17 g PO DAILY #0 ea 01/05/25
rosuvastatin 20 mg tablet 20 mg PO QPM #30 tabs 01/05/25
spironolactone 25 mg tablet 12.5 mg (1/2 x 25 mg) PO DAILY #30 tabs 01/05/25
Home Medication Changes
Pending Results: No
--- NOTE | 2025-01-05 13:00 | CM ---
CM following re: discharge planning.
Reviewed pt's chart, met with pt and pt's spouse at bedside.
Discharge order noted. Both pt and his spouse are aware, expressed their agreement with discharge. IMM reviewed, placed on chart, pt has a copy.
Per CM note, pt referred to [facility].
Please fax discharge instructions to [facility] at [phone].
D/C plan: hoe with [facility] and family support. Spouse to transport.
[2025-01-05] MEDS: DESENEX/MITRAZOL/ZEASORB 1 APPLIC TOPICAL (13:02)
== END 2025-01-05 13:20 | disposition home health service (06) | DRG 37 ==
LOC: 2 SOUTH 20:50
PROVIDERS: Nurse Practitioner Acute Care; Nurse Practitioner Family; Nurse Practitioner Primary Care; Physician Assistant; ADMITTING PHYSICIAN Internal Medicine; ATTENDING PHYSICIAN Hospitalist; CONSULT PHYSICIAN Nuclear Medicine Nuclear Cardiology; CONSULT PHYSICIAN Psychiatry & Neurology Neurology; EMERGENCY PHYSICIAN Emergency Medicine; FAMILY PHYSICIAN Internal Medicine; OTHER PHYSICIAN Internal Medicine Critical Care Medicine; OTHER PHYSICIAN Surgery Vascular Surgery
PROC: 03UL0KZ Supplement Left Internal Carotid Artery with Nonautologous Tissue Substitute, Open Approach (ICD-10-PCS; 2025-01-02)
PROC: 03CL0ZZ Extirpation of Matter from Left Internal Carotid Artery, Open Approach (ICD-10-PCS; 2025-01-02)
PROC: 03CJ0ZZ Extirpation of Matter from Left Common Carotid Artery, Open Approach (ICD-10-PCS; 2025-01-02)
DX: I63.032 Cerebral infarction due to thrombosis of left carotid artery (principal); I50.33 Acute on chronic diastolic (congestive) heart failure; I48.21 Permanent atrial fibrillation; J98.11 Atelectasis; I11.0 Hypertensive heart disease with heart failure; I25.10 Atherosclerotic heart disease of native coronary artery without angina pectoris; Z95.1 Presence of aortocoronary bypass graft; J44.9 Chronic obstructive pulmonary disease, unspecified; E03.9 Hypothyroidism, unspecified; Z88.5 Allergy status to narcotic agent; Z79.01 Long term (current) use of anticoagulants; Z86.73 Personal history of transient ischemic attack (TIA), and cerebral infarction without residual deficits; G47.33 Obstructive sleep apnea (adult) (pediatric); K58.9 Irritable bowel syndrome, unspecified; Z91.199 Patient's noncompliance with other medical treatment and regimen due to unspecified reason; E66.09 Other obesity due to excess calories; Z68.27 Body mass index [BMI] 27.0-27.9, adult; E11.9 Type 2 diabetes mellitus without complications; E78.00 Pure hypercholesterolemia, unspecified; F41.9 Anxiety disorder, unspecified; H54.62 Unqualified visual loss, left eye, normal vision right eye; H91.91 Unspecified hearing loss, right ear; L40.9 Psoriasis, unspecified; Z79.890 Hormone replacement therapy; Z79.899 Other long term (current) drug therapy; Z87.891 Personal history of nicotine dependence; Z98.41 Cataract extraction status, right eye; Z98.42 Cataract extraction status, left eye
CPT/HCPCS: 35301; 70450; 70496; 70498; 70544; 70548; 70551; 71046; 80048; 80053; 80061; 81003; 81015; 82607; 82728; 82746; 82962; 83735; 83880; 84439; 84443; 85025; 85027; 85610; 85652; 85730; 86140; 86850; 86900; 86901; 88304; 88311; 93005; 93306; 93880; 95938; 95941; 95955; 96365; 97116; 97163; 97167; 97530; 99285; A9585; Q9967

== ENCOUNTER → 2025-01-09 10:18 | Outpatient (REF) | payer OTHER, SELFPAY ==
[2025-01-09 12:00] LABS: Blood Urea Nitrogen 32 mg/dl (9-20); Calcium 9.8 mg/dl (8.4-10.2); Carbon Dioxide 32 mmol/L (22-30); Chloride 100 mmol/L (98-107); Glucose 107 mg/dl (70-99); Potassium 4.2 mmol/L (3.5-5.1); Sodium 139 mmol/L (135-145); eGFR > 60.00
== END ==
LOC: REG 10:18
PROVIDERS: ATTENDING PHYSICIAN Internal Medicine Cardiovascular Disease; FAMILY PHYSICIAN Internal Medicine
DX: I50.31 Acute diastolic (congestive) heart failure (principal)
CPT/HCPCS: 36415; 80048; 83880

== ENCOUNTER → 2025-02-04 12:30 | Outpatient (REF) | payer OTHER, SELFPAY ==
[2025-02-04 16:44] LABS: Blood Urea Nitrogen 31 mg/dl (9-20); Calcium 10.0 mg/dl (8.4-10.2); Carbon Dioxide 30 mmol/L (22-30); Chloride 101 mmol/L (98-107); Glucose 108 mg/dl (70-99); Potassium 4.0 mmol/L (3.5-5.1); Sodium 139 mmol/L (135-145); eGFR > 60.00
== END ==
LOC: HWLAB 12:30
PROVIDERS: ATTENDING PHYSICIAN Physician Assistant Medical; FAMILY PHYSICIAN Internal Medicine
DX: I50.32 Chronic diastolic (congestive) heart failure (principal)
CPT/HCPCS: 36415; 80048; 83880

== ENCOUNTER → 2025-02-12 10:56 | Outpatient (REF) | payer OTHER, SELFPAY | LOC: RAD 10:56 | PROVIDERS: ATTENDING PHYSICIAN Physician Assistant; FAMILY PHYSICIAN Internal Medicine; OTHER PHYSICIAN Surgery Vascular Surgery | DX: I65.23 Occlusion and stenosis of bilateral carotid arteries (principal) | CPT/HCPCS: 93880 ==

== ENCOUNTER → 2025-04-15 10:22 | Outpatient (REF) | payer OTHER, SELFPAY ==
[2025-04-15 17:37] LABS: Urine Character Clear (Clear)
[2025-04-15 17:49] LABS: Urine White Cell 0-2 /HPF (0-5)
== END ==
LOC: CLAB 10:22
PROVIDERS: ATTENDING PHYSICIAN Specialist
DX: R31.9 Hematuria, unspecified (principal)
CPT/HCPCS: 81003; 81015

== ENCOUNTER → 2025-05-05 18:22 | Outpatient (REF) | payer OTHER, SELFPAY | LOC: MRI 18:22 | PROVIDERS: ATTENDING PHYSICIAN Specialist; FAMILY PHYSICIAN Internal Medicine | DX: D41.01 Neoplasm of uncertain behavior of right kidney (principal) | CPT/HCPCS: 74183; A9575 ==